=== PATIENT | male | born 1950 | race Caucasian/White ===

== ENCOUNTER → 2016-11-24 | Outpatient (CLI) | payer BC ==
[~2016-11-24] MED LIST: ALBU0.084 IN; CLOP75TA28 PO; FLUT0.0531 NAS; FLUT500M6 INH; OMEP20CA5 PO; RAMI10CA38 PO; ROSU10TA16 PO; TAM04C PO
[2016-11-24 09:11] LABS: Basophils # (auto) 0 uL; Basophils % (auto) 0.3 % (0.0-2.0); Eosinophils # (auto) 0.4 uL; Eosinophils % (auto) 5.7 % (0.0-7.0); Hematocrit 46.1 % (41.0-53.0); Hemoglobin 14.6 g/dL (13.5-17.5); Lymphocytes # (auto) 1.3 uL; Mean Corpuscular Hemoglobin 29.4 pg (28.0-32.0); Mean Corpuscular Hgb Conc. 31.6 g/dL (32.0-36.0); Mean Corpuscular Volume 92.9 fL (80.0-100.0); Mean Platelet Volume 9.4 fL (7.4-10.4); Monocytes # (auto) 0.5 uL; Monocytes % (auto) 7.4 % (0.0-12.0); Neutrophils # (auto) 4.2 uL; Neutrophils % (auto) 65.6 % (37.0-80.0); Platelet Count (auto) 222 10^3/uL (140-450); Red Cell Distribution Width 13.9 % (11.6-16.0); White Blood Cell 6.4 10^3/uL (4.4-10.8)
[2016-11-24 11:12] LABS: Urine Bilirubin Negative (Negative); Urine Blood Negative /uL (Negative); Urine Color Yellow (Yellow); Urine Glucose Normal (Normal); Urine Ketone Negative (Negative); Urine Nitrite Negative (Negative); Urine RBC <1 /hpf (0 - 3); Urine Squamous Epithelial Cell FEW /hpf (<5); Urine Urobilinogen Normal (Negative)
[2016-11-24 13:53] LABS: Potassium 4.6 mmol/L (3.5-5.1)
[2016-11-24 14:09] LABS: Albumin 3.6 g/dL (3.4-5.0); BUN/Creatinine Ratio 19.3; Calcium 8.8 mg/dL (8.5-10.1)
[2016-11-24 14:55] LABS: Bilirubin, Total 1.3 mg/dL (0.2-1.0); Total Protein 7.5 g/dL (6.4-8.2)
== END | disposition home or self-care (01) ==
LOC: LAB 07:49
PROVIDERS: ATTEND Internal Medicine
DX: Z00.00 Encounter for general adult medical examination without abnormal findings (principal); I10 Essential (primary) hypertension; J44.9 Chronic obstructive pulmonary disease, unspecified; E55.9 Vitamin D deficiency, unspecified; K21.9 Gastro-esophageal reflux disease without esophagitis
CPT/HCPCS: 36415; 80053; 80061; 81001; 82306; 84153; 85025

== ENCOUNTER → 2017-01-20 | Outpatient (CLI) | payer BC ==
[~2017-01-20] MED LIST changes: +ALBUTEROL SULF 2.5 MG/0.5ML(0.5%) NEB SOLN ONE
== END ==
LOC: RT 08:35
PROVIDERS: ATTEND Internal Medicine
DX: J44.9 Chronic obstructive pulmonary disease, unspecified (principal)
CPT/HCPCS: 94060

== ENCOUNTER 2017-07-03 19:07 | Emergency (ER) | payer MEDICARE, BC ==
[~2017-07-03] VITALS: Ht 177.8 cm; Wt 88.9 kg
[~2017-07-03 19:07] MED LIST changes: -ALBUTEROL SULF 2.5 MG/0.5ML(0.5%) NEB SOLN ONE; -OMEP20CA5 PO; +OMEP20CA74 PO
[2017-07-03 19:28] VITALS: BP 137/85
[2017-07-03] MEDS ORDERED: traMADol HCL 50 MG TAB PO ONE (22:45)
== END 2017-07-03 23:22 | disposition home or self-care (01) ==
LOC: ER 19:17
DX: S52.122A Displaced fracture of head of left radius, initial encounter for closed fracture (principal); M25.422 Effusion, left elbow; Z88.0 Allergy status to penicillin; W01.0XXA Fall on same level from slipping, tripping and stumbling without subsequent striking against object, initial encounter; Y93.89 Activity, other specified; Y99.8 Other external cause status; Y92.89 Other specified places as the place of occurrence of the external cause
CPT/HCPCS: 29125; 73070; 73090; 73110

== ENCOUNTER → 2017-08-12 | Outpatient (CLI) | payer BC, MEDICARE ==
[2017-08-12 08:29] LABS: Basophils # (auto) 0 uL; Basophils % (auto) 0.4 % (0.0-2.0); Eosinophils # (auto) 0.4 uL; Eosinophils % (auto) 5.6 % (0.0-7.0); Hematocrit 46.8 % (41.0-53.0); Hemoglobin 15.7 g/dL (13.5-17.5); Lymphocytes # (auto) 1.9 uL; Lymphocytes % (auto) 30.4 % (10.0-50.0); Mean Corpuscular Hgb Conc. 33.5 g/dL (32.0-36.0); Mean Corpuscular Volume 95.5 fL (80.0-100.0); Mean Platelet Volume 8.8 fL (6.9-10.8); Monocytes # (auto) 0.5 uL; Monocytes % (auto) 8.3 % (0.0-12.0); Neutrophils # (auto) 3.5 uL; Neutrophils % (auto) 55.3 % (37.0-80.0); Nucleated Red Blood Cells % 0.1 %; Platelet Count (auto) 169 10^3/uL (140-450); Red Cell Distribution Width 13.9 % (11.8-14.3); White Blood Cell 6.3 10^3/uL (4.4-10.8)
[2017-08-12 08:35] LABS: Urine Bilirubin Negative (Negative); Urine Blood Negative /uL (Negative); Urine Color Yellow (Yellow); Urine Glucose Normal (Normal); Urine Ketone Negative (Negative); Urine Mucus FEW (None Seen); Urine Nitrite Negative (Negative); Urine RBC <1 /hpf (0 - 3); Urine Squamous Epithelial Cell FEW /hpf (<5); Urine Urobilinogen Normal (Negative)
[2017-08-12 08:48] LABS: Albumin 3.4 g/dL (3.4-5.0); BUN/Creatinine Ratio 15.2; Bilirubin, Total 1.9 mg/dL (0.2-1.0); Calcium 8.9 mg/dL (8.5-10.1); Potassium 4.6 mmol/L (3.5-5.1); Total Protein 7.6 g/dL (6.4-8.2)
== END | disposition home or self-care (01) ==
LOC: LAB 07:47
PROVIDERS: ATTEND Internal Medicine
DX: I10 Essential (primary) hypertension (principal); E78.2 Mixed hyperlipidemia; N39.0 Urinary tract infection, site not specified; E55.9 Vitamin D deficiency, unspecified
CPT/HCPCS: 36415; 80053; 80061; 81001; 82306; 85025

== ENCOUNTER 2017-12-05 08:17 | Day surgery (SDC) | payer OTHER ==
[2017-12-02 11:33] LABS: Basophils # (auto) 0 uL; Basophils % (auto) 0.4 % (0.0-2.0); Eosinophils # (auto) 0.3 uL; Eosinophils % (auto) 5.8 % (0.0-7.0); Hematocrit 47.1 % (41.0-53.0); Hemoglobin 15.8 g/dL (13.5-17.5); Lymphocytes # (auto) 1.3 uL; Lymphocytes % (auto) 25.4 % (10.0-50.0); Mean Corpuscular Hemoglobin 31.8 pg (28.0-32.0); Mean Corpuscular Hgb Conc. 33.7 g/dL (32.0-36.0); Mean Corpuscular Volume 94.5 fL (80.0-100.0); Monocytes # (auto) 0.4 uL; Monocytes % (auto) 7.4 % (0.0-12.0); Neutrophils # (auto) 3.2 uL; Nucleated Red Blood Cells % 0.1 %; Platelet Count (auto) 172 10^3/uL (140-450); Red Blood Cells 4.98 10^6/uL (4.5-5.90); Red Cell Distribution Width 13.7 % (11.8-14.3); White Blood Cell 5.3 10^3/uL (4.4-10.8)
[2017-12-02 11:43] LABS: INR 0.98 (0.9-1.15); Prothrombin Time 10.7 sec (9.37-12.3)
[~2017-12-05] VITALS: Ht 177.8 cm; Wt 88.9 kg
[~2017-12-05 08:17] MED LIST changes: +CARV3.1240 PO; -FLUT500M6 INH; +LISI-275 PO; +MONT10TA34 PO; -OMEP20CA74 PO; -RAMI10CA38 PO; -ROSU10TA16 PO; +SIMV20TA90 PO; -TAM04C PO
[2017-12-05] MEDS ORDERED: diphenhdrAMINE HCL 50 MG/1 ML VL ONE (08:37)
[2017-12-05] MEDS ORDERED: SODIUM CHLORIDE LOCK 10 ML ONE (08:37)
[2017-12-05] MEDS: MIDAZOLAM HCL 5 MG/ML-1ML VIAL ONE ×2 (08:49→08:56)
[2017-12-05] MEDS: fentaNYL CITRATE 100 MCG/2 ML VL ONE ×2 (08:49→08:56)
[2017-12-05 10:00] VITALS: BP 98/73
== END 2017-12-05 10:00 | disposition home or self-care (01) ==
LOC: GI 08:17
PROVIDERS: ATTEND Internal Medicine Gastroenterology
DX: Z12.11 Encounter for screening for malignant neoplasm of colon (principal); K63.5 Polyp of colon; K64.8 Other hemorrhoids; K57.30 Diverticulosis of large intestine without perforation or abscess without bleeding; Z88.0 Allergy status to penicillin; E66.9 Obesity, unspecified; Z68.28 Body mass index [BMI] 28.0-28.9, adult; Z95.0 Presence of cardiac pacemaker; J44.9 Chronic obstructive pulmonary disease, unspecified; J45.909 Unspecified asthma, uncomplicated; Z90.49 Acquired absence of other specified parts of digestive tract
CPT/HCPCS: 36415; 45380; 45385; 85025; 85610; J1200; J2250; J3010; 99152

== ENCOUNTER → 2018-01-18 | Outpatient (CLI) | payer BC, OTHER ==
[~2018-01-18] MED LIST changes: +ALBU1.257 NEB; +ATOR20TA50 PO; +BUDE80AE3 NEB; +CLOP75TA41 PO; +FLUT50SP13; +HYDR-4683 PO; +METO25TA62 PO; +NAPR500T31 PO; +RAMI10CA38 PO; +RIVA20TA PO; +SIMV-8 PO; +SOTA80TA PO
== END | disposition home or self-care (01) ==
LOC: Rad HDHVI 08:12 → MERGE 08:12
PROVIDERS: ATTEND Internal Medicine Cardiovascular Disease
DX: G45.9 Transient cerebral ischemic attack, unspecified (principal); I12.9 Hypertensive chronic kidney disease with stage 1 through stage 4 chronic kidney disease, or unspecified chronic kidney disease; N18.3 Chronic kidney disease, stage 3 (moderate); E78.00 Pure hypercholesterolemia, unspecified
CPT/HCPCS: 93880

== ENCOUNTER → 2018-03-06 | Outpatient (CLI) | payer OTHER ==
[2018-03-06 11:47] LABS: Basophils # (auto) 0 uL; Basophils % (auto) 0.4 % (0.0-2.0); Eosinophils # (auto) 0.4 uL; Eosinophils % (auto) 7.2 % (0.0-7.0); Hematocrit 50.6 % (41.0-53.0); Lymphocytes # (auto) 1.4 uL; Lymphocytes % (auto) 28.8 % (10.0-50.0); Mean Corpuscular Hemoglobin 32.3 pg (28.0-32.0); Mean Corpuscular Hgb Conc. 33.6 g/dL (32.0-36.0); Mean Corpuscular Volume 96.1 fL (80.0-100.0); Monocytes # (auto) 0.4 uL; Monocytes % (auto) 7.8 % (0.0-12.0); Neutrophils # (auto) 2.7 uL; Neutrophils % (auto) 55.8 % (37.0-80.0); Nucleated Red Blood Cells % 0.2 %; Platelet Count (auto) 156 10^3/uL (140-450); Red Blood Cells 5.26 10^6/uL (4.5-5.90); Red Cell Distribution Width 13.7 % (11.8-14.3); White Blood Cell 4.9 10^3/uL (4.4-10.8)
[2018-03-06 13:00] LABS: Albumin 3.8 g/dL (3.4-5.0); BUN/Creatinine Ratio 12.2; Bilirubin, Total 3.5 mg/dL (0.2-1.0); Calcium 9.5 mg/dL (8.5-10.1); Potassium 5.2 mmol/L (3.5-5.1)
== END | disposition home or self-care (01) ==
LOC: MERGE 09:59 → LAB 09:59
PROVIDERS: ATTEND Physician Assistant
DX: I12.9 Hypertensive chronic kidney disease with stage 1 through stage 4 chronic kidney disease, or unspecified chronic kidney disease (principal); N18.3 Chronic kidney disease, stage 3 (moderate); E78.00 Pure hypercholesterolemia, unspecified; N40.0 Benign prostatic hyperplasia without lower urinary tract symptoms; I48.1 Persistent atrial fibrillation; Z86.73 Personal history of transient ischemic attack (TIA), and cerebral infarction without residual deficits
CPT/HCPCS: 36415; 80053; 80061; 84153; 85025

== ENCOUNTER 2018-03-23 08:25 | Day surgery (SDC) | payer OTHER ==
[2018-03-15 08:34] LABS: Basophils # (auto) 0 uL; Basophils % (auto) 0.5 % (0.0-2.0); Eosinophils # (auto) 0.3 uL; Eosinophils % (auto) 6.2 % (0.0-7.0); Hematocrit 48.2 % (41.0-53.0); Hemoglobin 16.4 g/dL (13.5-17.5); Lymphocytes # (auto) 1.1 uL; Lymphocytes % (auto) 23.6 % (10.0-50.0); Mean Corpuscular Hemoglobin 32.5 pg (28.0-32.0); Mean Corpuscular Volume 95.5 fL (80.0-100.0); Monocytes # (auto) 0.3 uL; Neutrophils # (auto) 2.8 uL; Neutrophils % (auto) 63.7 % (37.0-80.0); Platelet Count (auto) 148 10^3/uL (140-450); Red Blood Cells 5.04 10^6/uL (4.5-5.90); Red Cell Distribution Width 13.4 % (11.8-14.3); White Blood Cell 4.5 10^3/uL (4.4-10.8)
[2018-03-15 08:45] LABS: INR 1.19 (0.9-1.15); Partial Thromboplastin Time 32.5 sec (23.78-33.04); Prothrombin Time 12.6 sec (9.27-12.13)
[2018-03-15 09:28] LABS: Potassium 4.4 mmol/L (3.5-5.1)
[~2018-03-23] VITALS: Ht 175.3 cm; Wt 87.5 kg
[~2018-03-23 08:25] MED LIST changes: -CLOP75TA28 PO; -SIMV20TA90 PO
[2018-03-23] MEDS ORDERED: IOHEXOL 350 MG/ML 100ML IJ ONE (09:09)
[2018-03-23] MEDS ORDERED: LIDOCAINE 2%HCL (LOCAL ANESTH.) INJ 20ML MDV ONE (09:09)
[2018-03-23] MEDS ORDERED: SODIUM CHL 0.9% 0 ML ONE (09:13)
[2018-03-23] MEDS ORDERED: MIDAZOLAM HCL 1MG/1ML-2 ML VIAL ONE (09:13)
[2018-03-23] MEDS ORDERED: ANGIOMAX 250 MG VIAL IV ONE (09:13)
[2018-03-23] MEDS ORDERED: fentaNYL CITRATE 100 MCG/2 ML VL ONE (09:13)
[2018-03-23] MEDS ORDERED: IODIXANOL 320MG/ML 100ML BTL IV ONE (09:26)
[2018-03-23] MEDS ORDERED: ENOXAPARIN SOD 30 MG/0.3 ML SYRINGE ONE (09:32)
[2018-03-23] MEDS ORDERED: ENOXAPARIN SOD 30 MG/0.3 ML SYRINGE IV ONE (09:45)
== END 2018-03-23 11:50 | disposition home or self-care (01) ==
LOC: CATH 08:25
PROVIDERS: ATTEND Internal Medicine Cardiovascular Disease
DX: I48.91 Unspecified atrial fibrillation (principal); I49.5 Sick sinus syndrome; E66.9 Obesity, unspecified; J44.9 Chronic obstructive pulmonary disease, unspecified; I10 Essential (primary) hypertension; E78.5 Hyperlipidemia, unspecified; Z86.73 Personal history of transient ischemic attack (TIA), and cerebral infarction without residual deficits; Z95.0 Presence of cardiac pacemaker; Z88.0 Allergy status to penicillin; Z79.899 Other long term (current) drug therapy
CPT/HCPCS: 36415; 80048; 85025; 85610; 85730; 92960; 93005; 93458; C1760; C1894; J1644; J1650; J2250; J3010; J7030; Q9967; 99152

== ENCOUNTER → 2018-04-10 | Outpatient (CLI) | payer OTHER | END | disposition home or self-care (01) | LOC: Rad HDHVI 09:00 | PROVIDERS: ATTEND Internal Medicine Cardiovascular Disease | DX: Z01.818 Encounter for other preprocedural examination (principal); I08.8 Other rheumatic multiple valve diseases; I48.91 Unspecified atrial fibrillation; I12.9 Hypertensive chronic kidney disease with stage 1 through stage 4 chronic kidney disease, or unspecified chronic kidney disease; N18.3 Chronic kidney disease, stage 3 (moderate); K21.9 Gastro-esophageal reflux disease without esophagitis; E78.5 Hyperlipidemia, unspecified | CPT/HCPCS: 93306 ==

== ENCOUNTER → 2018-04-12 | Outpatient (CLI) | payer OTHER | END | disposition home or self-care (01) | LOC: Rad HDHVI 09:14 | PROVIDERS: ATTEND Internal Medicine Cardiovascular Disease | DX: Z01.818 Encounter for other preprocedural examination (principal); R91.1 Solitary pulmonary nodule; I12.9 Hypertensive chronic kidney disease with stage 1 through stage 4 chronic kidney disease, or unspecified chronic kidney disease; N18.3 Chronic kidney disease, stage 3 (moderate); G31.9 Degenerative disease of nervous system, unspecified; I70.90 Unspecified atherosclerosis; J34.9 Unspecified disorder of nose and nasal sinuses; E78.5 Hyperlipidemia, unspecified; E78.00 Pure hypercholesterolemia, unspecified; K21.9 Gastro-esophageal reflux disease without esophagitis; Z79.899 Other long term (current) drug therapy | CPT/HCPCS: 70450 ==

== ENCOUNTER → 2018-06-14 | Outpatient (CLI) | payer OTHER ==
[~2018-06-14] MED LIST changes: -ATOR20TA50 PO; -CARV3.1240 PO; -CLOP75TA41 PO; -FLUT50SP13; -METO25TA62 PO; -MONT10TA34 PO; -NAPR500T31 PO; -RAMI10CA38 PO; +SACU1TAB PO
[2018-06-14 09:14] LABS: Basophils # (auto) 0 uL; Basophils % (auto) 0.4 % (0.0-2.0); Eosinophils # (auto) 0.2 uL; Hematocrit 43.5 % (41.0-53.0); Hemoglobin 14.5 g/dL (13.5-17.5); Lymphocytes # (auto) 1.2 uL; Lymphocytes % (auto) 30.3 % (10.0-50.0); Mean Corpuscular Hemoglobin 31.5 pg (28.0-32.0); Mean Corpuscular Hgb Conc. 33.4 g/dL (32.0-36.0); Mean Corpuscular Volume 94.5 fL (80.0-100.0); Monocytes # (auto) 0.4 uL; Monocytes % (auto) 8.8 % (0.0-12.0); Neutrophils # (auto) 2.2 uL; Neutrophils % (auto) 54.5 % (37.0-80.0); Nucleated Red Blood Cells % 0.1 %; Platelet Count (auto) 180 10^3/uL (140-450); Red Cell Distribution Width 13.5 % (11.8-14.3); White Blood Cell 4.1 10^3/uL (4.4-10.8)
[2018-06-14 09:27] LABS: INR 1.15 (0.9-1.15); Partial Thromboplastin Time 32.8 sec (23.78-33.04); Prothrombin Time 12.2 sec (9.27-12.13)
[2018-06-14 09:34] LABS: BUN/Creatinine Ratio 14.3; Calcium 8.6 mg/dL (8.5-10.1); Potassium 4.5 mmol/L (3.5-5.1)
== END | disposition home or self-care (01) ==
LOC: LAB 08:25
PROVIDERS: ATTEND Internal Medicine
DX: Z01.818 Encounter for other preprocedural examination (principal); Z88.0 Allergy status to penicillin
CPT/HCPCS: 36415; 80048; 85025; 85610; 85730

== ENCOUNTER → 2018-09-08 | Outpatient (CLI) | payer BC, MEDICARE, OTHER ==
[~2018-09-08] MED LIST changes: -ALBU0.084 IN; -ALBU1.257 NEB; -LISI-275 PO
== END | disposition home or self-care (01) ==
LOC: Rad HDHVI 12:45
PROVIDERS: ATTEND Internal Medicine Cardiovascular Disease
DX: I34.0 Nonrheumatic mitral (valve) insufficiency (principal); I34.1 Nonrheumatic mitral (valve) prolapse; I42.0 Dilated cardiomyopathy; I11.0 Hypertensive heart disease with heart failure; I50.23 Acute on chronic systolic (congestive) heart failure
CPT/HCPCS: 93306

== ENCOUNTER → 2018-11-24 | Outpatient (CLI) | payer OTHER ==
[2018-11-24 08:09] LABS: Basophils # (auto) 0 uL; Basophils % (auto) 0.5 % (0.0-2.0); Eosinophils # (auto) 0.2 uL; Eosinophils % (auto) 4.8 % (0.0-7.0); Hematocrit 44.6 % (41.0-53.0); Hemoglobin 15.1 g/dL (13.5-17.5); Lymphocytes # (auto) 1.3 uL; Lymphocytes % (auto) 25.4 % (10.0-50.0); Mean Corpuscular Hgb Conc. 33.9 g/dL (32.0-36.0); Mean Corpuscular Volume 94.4 fL (80.0-100.0); Monocytes # (auto) 0.5 uL; Monocytes % (auto) 9.3 % (0.0-12.0); Neutrophils # (auto) 3.1 uL; Nucleated Red Blood Cells % 0.1 %; Platelet Count (auto) 145 10^3/uL (140-450); Red Blood Cells 4.72 10^6/uL (4.5-5.90); Red Cell Distribution Width 14.2 % (11.8-14.3); White Blood Cell 5.2 10^3/uL (4.4-10.8)
[2018-11-24 08:32] LABS: Albumin 3.3 g/dL (3.4-5.0); Potassium 4.7 mmol/L (3.5-5.1)
[2018-11-24 08:42] LABS: BUN/Creatinine Ratio 26.7; Bilirubin, Total 1.9 mg/dL (0.2-1.0); Calcium 9.1 mg/dL (8.5-10.1); Total Protein 7.1 g/dL (6.4-8.2)
== END | disposition home or self-care (01) ==
LOC: LAB 07:43
PROVIDERS: ATTEND Physician Assistant
DX: N40.0 Benign prostatic hyperplasia without lower urinary tract symptoms (principal); E78.00 Pure hypercholesterolemia, unspecified
CPT/HCPCS: 36415; 80053; 80061; 84153; 85025

== ENCOUNTER → 2018-12-18 | Outpatient (CLI) | payer OTHER | END | disposition home or self-care (01) | LOC: Rad HDHVI 12:49 | PROVIDERS: ATTEND Internal Medicine Cardiovascular Disease | DX: I67.82 Cerebral ischemia (principal); I67.2 Cerebral atherosclerosis | CPT/HCPCS: 70450 ==

== ENCOUNTER 2019-01-23 09:52 | Inpatient (IN) | payer OTHER | END 2019-01-26 19:10 | disposition home or self-care (01) | LOC: ER 09:52 → TELE-EAST 20:36 → TELE 14:33 → TELE-EAST 20:39 | DX: J44.1 Chronic obstructive pulmonary disease with (acute) exacerbation (principal); I50.23 Acute on chronic systolic (congestive) heart failure; N18.3 Chronic kidney disease, stage 3 (moderate); E78.00 Pure hypercholesterolemia, unspecified; J20.9 Acute bronchitis, unspecified; J44.0 Chronic obstructive pulmonary disease with (acute) lower respiratory infection ==

== ENCOUNTER → 2019-05-03 | Outpatient (CLI) | payer BC, MEDICARE, OTHER ==
[~2019-05-03] MED LIST changes: +ALB5IS NEB; -HYDR-4683 PO; +HYDR-4833 PO
== END | disposition home or self-care (01) ==
LOC: Rad HDHVI 14:34
PROVIDERS: ATTEND Internal Medicine Cardiovascular Disease
DX: I34.0 Nonrheumatic mitral (valve) insufficiency (principal); I48.91 Unspecified atrial fibrillation; I25.5 Ischemic cardiomyopathy
CPT/HCPCS: 93306

== ENCOUNTER → 2019-08-03 | Outpatient (CLI) | payer OTHER, MEDICARE ==
[~2019-08-03] MED LIST changes: +SOTA120T39 PO
[2019-08-03 08:58] LABS: Basophils # (auto) 0 uL; Basophils % (auto) 0.2 % (0.0-2.0); Eosinophils # (auto) 0.3 uL; Eosinophils % (auto) 4.6 % (0.0-7.0); Hemoglobin 15.9 g/dL (13.5-17.5); Lymphocytes # (auto) 1.4 uL; Lymphocytes % (auto) 24.7 % (10.0-50.0); Mean Corpuscular Hemoglobin 32.1 pg (28.0-32.0); Mean Corpuscular Hgb Conc. 34.7 g/dL (32.0-36.0); Mean Corpuscular Volume 92.8 fL (80.0-100.0); Monocytes # (auto) 0.4 uL; Monocytes % (auto) 7.4 % (0.0-12.0); Neutrophils # (auto) 3.5 uL; Neutrophils % (auto) 63.1 % (37.0-80.0); Nucleated Red Blood Cells % 0.1 %; Platelet Count (auto) 171 10^3/uL (140-450); Red Blood Cells 4.96 10^6/uL (4.5-5.90); Red Cell Distribution Width 13.7 % (11.8-14.3); White Blood Cell 5.6 10^3/uL (4.4-10.8)
[2019-08-03 09:14] LABS: BUN/Creatinine Ratio 24.3; Calcium 8.5 mg/dL (8.5-10.1); Potassium 4.6 mmol/L (3.5-5.1)
[2019-08-03 09:15] LABS: INR 1.05 (0.9-1.15); Partial Thromboplastin Time 32.2 sec (23.64-32.05)
== END | disposition home or self-care (01) ==
LOC: LAB 08:47
PROVIDERS: ATTEND Physician Assistant
DX: Z01.818 Encounter for other preprocedural examination (principal); E78.00 Pure hypercholesterolemia, unspecified
CPT/HCPCS: 36415; 80048; 85025; 85610; 85730

== ENCOUNTER 2019-08-16 07:27 | Day surgery (SDC) | payer OTHER ==
[~2019-08-16] VITALS: Ht 175.3 cm; Wt 89.4 kg
[~2019-08-16 07:27] MED LIST changes: -ALB5IS NEB; -HYDR-4833 PO
[2019-08-16] MEDS ORDERED: IOHEXOL 350 MG/ML 100ML IJ ONE (08:03)
[2019-08-16] MEDS ORDERED: LIDOCAINE 2%HCL (LOCAL ANESTH.) INJ 20ML MDV ONE (08:03)
[2019-08-16] MEDS ORDERED: GLYCOPYRROLATE 0.2 MG/ML 1ML VIAL ONE (09:49)
[2019-08-16] MEDS ORDERED: ANGIOMAX 250 MG VIAL IV ONE (09:49)
[2019-08-16] MEDS ORDERED: PHENYLEPHRINE HCL 10 MG/ML VL ONE (09:49)
[2019-08-16] MEDS ORDERED: fentaNYL CITRATE 100 MCG/2 ML VL ONE (09:50)
[2019-08-16] MEDS ORDERED: SODIUM CHL 0.9% 0 ML ONE (09:50)
[2019-08-16] MEDS ORDERED: MIDAZOLAM HCL 1MG/1ML-2 ML VIAL ONE (09:50)
== END 2019-08-16 12:30 | disposition home or self-care (01) ==
LOC: CATH 07:27
PROVIDERS: ATTEND Internal Medicine Cardiovascular Disease
DX: I48.19 Other persistent atrial fibrillation (principal); I42.9 Cardiomyopathy, unspecified; I13.0 Hypertensive heart and chronic kidney disease with heart failure and stage 1 through stage 4 chronic kidney disease, or unspecified chronic kidney disease; N18.3 Chronic kidney disease, stage 3 (moderate); I50.23 Acute on chronic systolic (congestive) heart failure; J44.9 Chronic obstructive pulmonary disease, unspecified; E78.5 Hyperlipidemia, unspecified; Z87.891 Personal history of nicotine dependence; Z95.810 Presence of automatic (implantable) cardiac defibrillator; Z88.8 Allergy status to other drugs, medicaments and biological substances; Z88.0 Allergy status to penicillin; Z91.048 Other nonmedicinal substance allergy status; Z79.899 Other long term (current) drug therapy
CPT/HCPCS: 36223; 93005; 93458; C1760; C1894; J1644; Q9967; 99152; J2250

== ENCOUNTER 2020-03-07 14:03 | Emergency (ER) | payer OTHER ==
[~2020-03-07] VITALS: Ht 175.3 cm; Wt 90.7 kg
[2020-03-07 14:38] LABS: Basophils # (auto) 0 10 ^3/uL (0-0.2); Basophils % (auto) 0.4 % (0.0-2.0); Eosinophils # (auto) 0.3 10 ^3/uL (0-0.8); Eosinophils % (auto) 3.9 % (0.0-7.0); Hematocrit 49.9 % (41.0-53.0); Hemoglobin 16.3 g/dL (13.5-17.5); Lymphocytes # (auto) 1.8 10 ^3/uL (0.4-5.4); Lymphocytes % (auto) 26.5 % (10.0-50.0); Mean Corpuscular Hemoglobin 31.5 pg (28.0-32.0); Mean Corpuscular Hgb Conc. 32.8 g/dL (32.0-36.0); Mean Corpuscular Volume 96.1 fL (80.0-100.0); Monocytes # (auto) 0.6 10 ^3/uL (0-1.3); Monocytes % (auto) 9.1 % (0.0-12.0); Neutrophils % (auto) 60.1 % (37.0-80.0); Nucleated Red Blood Cells % 0.1 %; Platelet Count (auto) 165 10^3/uL (140-450); Red Blood Cells 5.19 10^6/uL (4.5-5.90); Red Cell Distribution Width 14.3 % (11.8-14.3); White Blood Cell 6.7 10^3/uL (4.4-10.8)
[2020-03-07 14:53] LABS: Albumin 3.4 g/dL (3.4-5.0); Anion Gap 7 (5-15); Blood Urea Nitrogen 23 mg/dL (7-18); Calcium 8.6 mg/dL (8.5-10.1); Carbon Dioxide 22 mmol/L (21-32); Chloride 112 mmol/L (98-107); Glucose 91 mg/dL (74-106); Potassium 4.1 mmol/L (3.5-5.1); Sodium 141 mmol/L (136-145)
[2020-03-07 14:58] LABS: Alanine Aminotransferase 40 U/L (16-61); Alkaline Phosphatase 99 U/L (45-117); Aspartate Aminotransferase 26 U/L (15-37); Bilirubin, Total 2.8 mg/dL (0.2-1.0); GFR African American 77 mL/min; GFR Non-African American 63 mL/min; Total Protein 7.2 g/dL (6.4-8.2)
[2020-03-07 15:01] LABS: INR 1.09 (0.9-1.15); Partial Thromboplastin Time 28.5 sec (23.64-32.05)
[2020-03-07 18:11] VITALS: BP 118/72
== END 2020-03-07 18:15 | disposition home or self-care (01) ==
LOC: ER 14:03
DX: G45.9 Transient cerebral ischemic attack, unspecified (principal); R07.89 Other chest pain; J32.9 Chronic sinusitis, unspecified; J44.9 Chronic obstructive pulmonary disease, unspecified; I11.0 Hypertensive heart disease with heart failure; I50.9 Heart failure, unspecified; Z90.49 Acquired absence of other specified parts of digestive tract
CPT/HCPCS: 36415; 70450; 71045; 80053; 82962; 83880; 84484; 85025; 85610; 85730; 93005; 93886

== ENCOUNTER → 2020-03-24 | Outpatient (CLI) | payer OTHER ==
[2020-03-24 12:09] LABS: Basophils # (auto) 0 10 ^3/uL (0-0.2); Basophils % (auto) 0.3 % (0.0-2.0); Eosinophils # (auto) 0.2 10 ^3/uL (0-0.8); Eosinophils % (auto) 3.5 % (0.0-7.0); Hematocrit 49.4 % (41.0-53.0); Hemoglobin 16.4 g/dL (13.5-17.5); Lymphocytes # (auto) 1.4 10 ^3/uL (0.4-5.4); Mean Corpuscular Hemoglobin 32.2 pg (28.0-32.0); Mean Corpuscular Hgb Conc. 33.2 g/dL (32.0-36.0); Mean Corpuscular Volume 97.2 fL (80.0-100.0); Monocytes # (auto) 0.4 10 ^3/uL (0-1.3); Monocytes % (auto) 6.8 % (0.0-12.0); Neutrophils # (auto) 4.4 10 ^3/uL (1.6-8.6); Neutrophils % (auto) 67.4 % (37.0-80.0); Nucleated Red Blood Cells % 0.4 %; Platelet Count (auto) 162 10^3/uL (140-450); Red Blood Cells 5.08 10^6/uL (4.5-5.90); White Blood Cell 6.5 10^3/uL (4.4-10.8)
[2020-03-24 12:24] LABS: Free T4 (Free Thyroxine) 1.05 ng/dL (0.89-1.76)
[2020-03-24 12:25] LABS: Prostate Specific Antigen 0.5 ng/mL (0.0-4.0)
[2020-03-24 12:56] LABS: Albumin 3.2 g/dL (3.4-5.0); BUN/Creatinine Ratio 16.1; Bilirubin, Total 3.1 mg/dL (0.2-1.0); Calcium 8.8 mg/dL (8.5-10.1); Total Protein 7.1 g/dL (6.4-8.2)
== END | disposition home or self-care (01) ==
LOC: Rad HDHVI 08:57
PROVIDERS: ATTEND Internal Medicine Cardiovascular Disease
DX: C61 Malignant neoplasm of prostate (principal); Z00.00 Encounter for general adult medical examination without abnormal findings; E03.9 Hypothyroidism, unspecified; K90.9 Intestinal malabsorption, unspecified; E29.1 Testicular hypofunction; D51.9 Vitamin B12 deficiency anemia, unspecified; Z79.899 Other long term (current) drug therapy
CPT/HCPCS: 36415; 80053; 80061; 82306; 82607; 83036; 84153; 84403; 84439; 84443; 85025; 93306

== ENCOUNTER → 2020-07-08 | Outpatient (CLI) | payer OTHER ==
[2020-07-08 16:04] LABS: BUN/Creatinine Ratio 17.7; Calcium 8.5 mg/dL (8.5-10.1); Magnesium 2.5 mg/dL (1.6-2.6); Potassium 4.4 mmol/L (3.5-5.1)
== END | disposition home or self-care (01) ==
LOC: LAB 12:20
PROVIDERS: ATTEND Internal Medicine Cardiovascular Disease
DX: I10 Essential (primary) hypertension (principal); E83.40 Disorders of magnesium metabolism, unspecified
CPT/HCPCS: 36415; 80048; 83735

== ENCOUNTER 2020-09-13 07:29 | Emergency (ER) | payer OTHER ==
[~2020-09-13] VITALS: Ht 175.3 cm; Wt 90.3 kg
[2020-09-13] MEDS ORDERED: SODIUM CHLORIDE 0.9% 500 ML IV ONE (07:45)
[2020-09-13] MEDS ORDERED: ONDANSETRON HCL 4 MG/2 ML VIAL IV ONE (07:45)
[2020-09-13 08:00] VITALS: BP 116/79
[2020-09-13] MEDS ORDERED: MORPHINE SULFATE 4 MG/ML SYR/VIAL IV ONE (08:00)
[2020-09-13 08:03] LABS: Basophils # (auto) 0 10 ^3/uL (0-0.2); Basophils % (auto) 0.4 % (0.0-2.0); Eosinophils # (auto) 0.3 10 ^3/uL (0-0.8); Eosinophils % (auto) 4.4 % (0.0-7.0); Hematocrit 49.2 % (41.0-53.0); Hemoglobin 16.4 g/dL (13.5-17.5); Lymphocytes # (auto) 2.6 10 ^3/uL (0.4-5.4); Lymphocytes % (auto) 39.1 % (10.0-50.0); Mean Corpuscular Hemoglobin 31.8 pg (28.0-32.0); Mean Corpuscular Hgb Conc. 33.2 g/dL (32.0-36.0); Mean Corpuscular Volume 95.7 fL (80.0-100.0); Monocytes # (auto) 0.6 10 ^3/uL (0-1.3); Monocytes % (auto) 9.3 % (0.0-12.0); Neutrophils # (auto) 3.2 10 ^3/uL (1.6-8.6); Neutrophils % (auto) 46.8 % (37.0-80.0); Nucleated Red Blood Cells % 0.1 %; Platelet Count (auto) 176 10^3/uL (140-450); Red Blood Cells 5.15 10^6/uL (4.5-5.90); Red Cell Distribution Width 13.5 % (11.8-14.3); White Blood Cell 6.8 10^3/uL (4.4-10.8)
[2020-09-13 08:16] LABS: Albumin 3.6 g/dL (3.4-5.0); BUN/Creatinine Ratio 17.9; Calcium 9.6 mg/dL (8.5-10.1); Potassium 3.9 mmol/L (3.5-5.1)
[2020-09-13 08:28] LABS: Bilirubin, Total 2.4 mg/dL (0.2-1.0); Total Protein 7.6 g/dL (6.4-8.2)
== END 2020-09-13 12:49 | disposition home or self-care (01) ==
LOC: ER 07:29
DX: J44.1 Chronic obstructive pulmonary disease with (acute) exacerbation (principal); I11.0 Hypertensive heart disease with heart failure; I50.9 Heart failure, unspecified; K20.90 Esophagitis, unspecified without bleeding; N20.0 Calculus of kidney; J44.9 Chronic obstructive pulmonary disease, unspecified; Z90.49 Acquired absence of other specified parts of digestive tract; Z79.899 Other long term (current) drug therapy; Z88.0 Allergy status to penicillin; Z20.828 Contact with and (suspected) exposure to other viral communicable diseases
CPT/HCPCS: 36415; 71045; 74176; 80053; 83880; 84484; 85025; 87426; 93005; 96361; 96374; 99285; C9803; J2405; J7030; U0003

== ENCOUNTER → 2021-02-05 | Outpatient (CLI) | payer OTHER | END | disposition home or self-care (01) | LOC: Rad HDHVI 15:15 | PROVIDERS: ATTEND Internal Medicine Cardiovascular Disease | DX: R07.89 Other chest pain (principal); I10 Essential (primary) hypertension | CPT/HCPCS: 93306 ==

== ENCOUNTER → 2021-02-11 | Outpatient (CLI) | payer OTHER ==
[~2021-02-11] VITALS: Ht 176.5 cm; Wt 92.5 kg
[~2021-02-11] MED LIST changes: +ADENOSINE 78 MG in GIVE UN-DILUTED 0 ML IV ONE; +ADENOSINE 90 MG/30 ML INJ IV ONE
== END | disposition home or self-care (01) ==
LOC: Rad HDHVI 08:40
PROVIDERS: ATTEND Internal Medicine Cardiovascular Disease
DX: R94.31 Abnormal electrocardiogram [ECG] [EKG] (principal); I48.91 Unspecified atrial fibrillation; I10 Essential (primary) hypertension; I25.10 Atherosclerotic heart disease of native coronary artery without angina pectoris; E78.5 Hyperlipidemia, unspecified; R07.9 Chest pain, unspecified; R55 Syncope and collapse; Z95.0 Presence of cardiac pacemaker; Z82.49 Family history of ischemic heart disease and other diseases of the circulatory system
CPT/HCPCS: 78452; 93005; 96374; 96375; A9500; J0153

== ENCOUNTER → 2021-04-15 | Outpatient (CLI) | payer OTHER ==
[~2021-04-15] MED LIST changes: -ADENOSINE 78 MG in GIVE UN-DILUTED 0 ML IV ONE; -ADENOSINE 90 MG/30 ML INJ IV ONE; +BUDE80AE3 INH; -BUDE80AE3 NEB; +CHOL10009 PO; +DIGO0.25 PO; +MAGN400T40 PO; +METO-159 PO; +METO1TAB9 PO; +OMEG1CAP59 PO; +VITA100072 PO
[2021-04-15 10:04] VITALS: BP 96/67
[2021-04-15 10:18] VITALS: BP 104/75
[2021-04-15 12:05] LABS: Basophils # (auto) 0 10 ^3/uL (0-0.2); Basophils % (auto) 0.4 % (0.0-2.0); Eosinophils # (auto) 0.3 10 ^3/uL (0-0.8); Eosinophils % (auto) 4.7 % (0.0-7.0); Hematocrit 46.4 % (41.0-53.0); Hemoglobin 15.8 g/dL (13.5-17.5); Lymphocytes # (auto) 1.4 10 ^3/uL (0.4-5.4); Lymphocytes % (auto) 24.2 % (10.0-50.0); Mean Corpuscular Hemoglobin 32.8 pg (28.0-32.0); Mean Corpuscular Hgb Conc. 34.1 g/dL (32.0-36.0); Mean Corpuscular Volume 96.3 fL (80.0-100.0); Monocytes # (auto) 0.5 10 ^3/uL (0-1.3); Neutrophils # (auto) 3.6 10 ^3/uL (1.6-8.6); Neutrophils % (auto) 62.7 % (37.0-80.0); Platelet Count (auto) 158 10^3/uL (140-450); Red Blood Cells 4.81 10^6/uL (4.5-5.90); Red Cell Distribution Width 13.8 % (11.8-14.3); White Blood Cell 5.8 10^3/uL (4.4-10.8)
[2021-04-15 12:09] LABS: Potassium 4.5 mmol/L (3.5-5.1)
[2021-04-15 12:15] LABS: Calcium 8.7 mg/dL (8.5-10.1)
[2021-04-15 12:21] LABS: INR 1.1 (0.9-1.15); Partial Thromboplastin Time 27.2 sec (23.0-31.2)
== END | disposition home or self-care (01) ==
LOC: Rad HDHVI 09:51
PROVIDERS: ATTEND Internal Medicine Cardiovascular Disease
DX: Z01.812 Encounter for preprocedural laboratory examination (principal); I42.0 Dilated cardiomyopathy; I11.0 Hypertensive heart disease with heart failure; I50.9 Heart failure, unspecified; I48.91 Unspecified atrial fibrillation; M47.814 Spondylosis without myelopathy or radiculopathy, thoracic region; J98.11 Atelectasis
CPT/HCPCS: 36415; 71046; 80048; 85025; 85049; 85610; 85730; 93005; G0463

== ENCOUNTER 2021-04-16 08:20 | Day surgery (SDC) | payer OTHER ==
[~2021-04-16] VITALS: Ht 176.5 cm; Wt 91.6 kg
[~2021-04-16 08:20] MED LIST changes: -METO-159 PO; -SOTA120T39 PO
[2021-04-16] MEDS ORDERED: LIDOCAINE 2%HCL (LOCAL ANESTH.) INJ 20ML MDV ONE (09:22)
[2021-04-16] MEDS ORDERED: IOHEXOL 350 MG/ML 100ML IJ ONE (09:22)
[2021-04-16] MEDS ORDERED: fentaNYL CITRATE 100 MCG/2 ML VL ONE (09:38)
[2021-04-16] MEDS ORDERED: ANGIOMAX 250 MG VIAL IV ONE (09:38)
[2021-04-16] MEDS ORDERED: MIDAZOLAM HCL 2MG/2ML 2ml VIAL (1mg/ml) ONE (09:39)
[2021-04-16] MEDS ORDERED: SODIUM CHL 0.9% 0 ML ONE (09:39)
[2021-04-16] MEDS ORDERED: ACETAMINOPHEN 500 MG TAB PO PRN (10:45)
[2021-04-16] MEDS ORDERED: HYDROcodone-ACET 5/325MG TAB PO PRN (10:45)
== END 2021-04-16 13:01 | disposition home or self-care (01) ==
LOC: CATH 08:20
PROVIDERS: ATTEND Internal Medicine Cardiovascular Disease
DX: R07.89 Other chest pain (principal); I50.9 Heart failure, unspecified; J44.9 Chronic obstructive pulmonary disease, unspecified; Z98.890 Other specified postprocedural states; Z79.899 Other long term (current) drug therapy; Z88.8 Allergy status to other drugs, medicaments and biological substances; Z88.0 Allergy status to penicillin; Z68.29 Body mass index [BMI] 29.0-29.9, adult; Z95.810 Presence of automatic (implantable) cardiac defibrillator
CPT/HCPCS: 93458; C1760; C1894; J1644; J2250; J3010; J7030; Q9967; 99152

== ENCOUNTER → 2021-06-08 | Outpatient (CLI) | payer OTHER ==
[2021-06-08 08:50] LABS: Basophils # (auto) 0 10 ^3/uL (0-0.2); Basophils % (auto) 0.5 % (0.0-2.0); Eosinophils # (auto) 0.3 10 ^3/uL (0-0.8); Eosinophils % (auto) 6.2 % (0.0-7.0); Hematocrit 42.9 % (41.0-53.0); Hemoglobin 14.8 g/dL (13.5-17.5); Lymphocytes % (auto) 20.8 % (10.0-50.0); Mean Corpuscular Hemoglobin 32.8 pg (28.0-32.0); Mean Corpuscular Hgb Conc. 34.5 g/dL (32.0-36.0); Mean Corpuscular Volume 95.1 fL (80.0-100.0); Monocytes # (auto) 0.4 10 ^3/uL (0-1.3); Monocytes % (auto) 8.4 % (0.0-12.0); Neutrophils # (auto) 3.2 10 ^3/uL (1.6-8.6); Neutrophils % (auto) 64.1 % (37.0-80.0); Red Blood Cells 4.51 10^6/uL (4.5-5.90); Red Cell Distribution Width 13.6 % (11.8-14.3); White Blood Cell 4.9 10^3/uL (4.4-10.8)
[2021-06-08 09:21] LABS: BUN/Creatinine Ratio 18.4; Bilirubin, Total 2.5 mg/dL (0.2-1.0); Total Protein 6.6 g/dL (6.4-8.2)
== END | disposition home or self-care (01) ==
LOC: LAB 08:08
PROVIDERS: ATTEND Nurse Practitioner Family
DX: I10 Essential (primary) hypertension (principal); I25.5 Ischemic cardiomyopathy; N40.0 Benign prostatic hyperplasia without lower urinary tract symptoms
CPT/HCPCS: 36415; 80053; 80061; 85025

== ENCOUNTER 2021-07-19 11:08 | Observation (INO) | payer OTHER ==
[~2021-07-19] VITALS: Ht 175.3 cm; Wt 83.9 kg
[2021-07-19] MEDS ORDERED: SODIUM CHLORIDE 0.9% 1,000 ML IV ONE ×2 (11:30→16:30)
[2021-07-19 11:35] LABS: Basophils # (auto) 0 10 ^3/uL (0-0.2); Basophils % (auto) 0.6 % (0.0-2.0); Eosinophils # (auto) 0.3 10 ^3/uL (0-0.8); Eosinophils % (auto) 5.4 % (0.0-7.0); Hematocrit 44.7 % (41.0-53.0); Hemoglobin 15.5 g/dL (13.5-17.5); Lymphocytes # (auto) 1.3 10 ^3/uL (0.4-5.4); Lymphocytes % (auto) 21.8 % (10.0-50.0); Mean Corpuscular Hemoglobin 33.2 pg (28.0-32.0); Mean Corpuscular Hgb Conc. 34.8 g/dL (32.0-36.0); Mean Corpuscular Volume 95.5 fL (80.0-100.0); Monocytes # (auto) 0.5 10 ^3/uL (0-1.3); Monocytes % (auto) 8.3 % (0.0-12.0); Neutrophils # (auto) 3.7 10 ^3/uL (1.6-8.6); Neutrophils % (auto) 63.9 % (37.0-80.0); Nucleated Red Blood Cells % 0.1 %; Red Blood Cells 4.68 10^6/uL (4.5-5.90); Red Cell Distribution Width 13.4 % (11.8-14.3); White Blood Cell 5.8 10^3/uL (4.4-10.8)
[2021-07-19 12:03] LABS: Albumin 3.2 g/dL (3.4-5.0); Anion Gap 5 (5-15); Blood Urea Nitrogen 27 mg/dL (7-18); Calcium 8.6 mg/dL (8.5-10.1); Carbon Dioxide 24 mmol/L (21-32); Chloride 112 mmol/L (98-107); Glucose 101 mg/dL (74-106); Potassium 4.4 mmol/L (3.5-5.1); Sodium 141 mmol/L (136-145)
[2021-07-19 12:09] LABS: Alanine Aminotransferase 25 U/L (16-61); Alkaline Phosphatase 79 U/L (45-117); Aspartate Aminotransferase 14 U/L (15-37); BUN/Creatinine Ratio 22.3; Bilirubin, Total 2.7 mg/dL (0.2-1.0); GFR African American 76 mL/min; GFR Non-African American 63 mL/min; Total Protein 6.8 g/dL (6.4-8.2)
[2021-07-19] MEDS ORDERED: ONDANSETRON HCL 4 MG/2 ML VIAL IV PRN (16:30)
[2021-07-19] MEDS ORDERED: NITROGLYCERIN 0.4 MG SL TAB SL PRN (16:30)
[2021-07-19] MEDS ORDERED: HYDROcodone-ACET 5/325MG TAB PO PRN (16:30)
[2021-07-19] MEDS ORDERED: ACETAMINOPHEN 500 MG TAB PO PRN (16:30)
[2021-07-19] MEDS ORDERED: MORPHINE SULFATE INJECTION 2 MG/ML SYRG IV PRN ×2 (16:30)
[2021-07-19] MEDS: RIVAROXABAN 20 MG TAB PO SCH (17:37)
[2021-07-19] MEDS ORDERED: ATORVASTATIN 20 MG TAB PO SCH (22:00)
[2021-07-19] MEDS ORDERED: LORazepam 2MG/ML-1ML VIAL IV PRN (23:15)
[2021-07-20] MEDS: SACUBITRIL-VALSARTAN 24mg/26mg TAB PO SCH ×2 (00:41→10:51)
[2021-07-20] MEDS: SOTALOL HCL 80 MG TAB PO SCH ×2 (00:41→10:51)
[2021-07-20] MEDS ORDERED: LORazepam 2MG/ML-1ML VIAL IV STA (04:51)
[2021-07-20 05:00] VITALS: BP 121/70
[2021-07-20] MEDS ORDERED: DIGOXIN 0.25 MG TAB PO SCH (07:00)
[2021-07-20 08:00] VITALS: BP 113/74
[2021-07-20 09:33] VITALS: BP 113/74
[2021-07-20 12:32] VITALS: BP 115/69
[2021-07-20] MEDS ORDERED: IOHEXOL 350 MG/ML 100ML IJ ONE (14:37)
[2021-07-20 15:17] VITALS: BP 113/74
[2021-07-20 17:00] VITALS: BP 115/73
[2021-07-20] MEDS: RIVAROXABAN 20 MG TAB PO SCH (17:15)
== END 2021-07-20 17:34 | disposition home or self-care (01) ==
LOC: ER 11:08 → EDBD 11:08 → TELE 16:26 → TELE-WESTW 07-20 03:00
PROVIDERS: ADMIT Nurse Practitioner Acute Care; ATTEND Internal Medicine
DX: R07.89 Other chest pain (principal); Z20.822 Contact with and (suspected) exposure to COVID-19; R55 Syncope and collapse; I25.5 Ischemic cardiomyopathy; I95.9 Hypotension, unspecified; J44.9 Chronic obstructive pulmonary disease, unspecified; J98.11 Atelectasis; G08 Intracranial and intraspinal phlebitis and thrombophlebitis; G31.9 Degenerative disease of nervous system, unspecified; I48.91 Unspecified atrial fibrillation; E78.5 Hyperlipidemia, unspecified; R20.2 Paresthesia of skin; I11.0 Hypertensive heart disease with heart failure; I50.9 Heart failure, unspecified; H91.91 Unspecified hearing loss, right ear; E78.00 Pure hypercholesterolemia, unspecified; E11.9 Type 2 diabetes mellitus without complications; D84.9 Immunodeficiency, unspecified; F17.200 Nicotine dependence, unspecified, uncomplicated; Z87.442 Personal history of urinary calculi; Z95.0 Presence of cardiac pacemaker; Z79.01 Long term (current) use of anticoagulants; Z79.51 Long term (current) use of inhaled steroids
CPT/HCPCS: 36415; 70450; 71045; 71275; 80053; 84484; 85025; 87426; 93005; 95819; 96360; 96361; 99285; G0378; J7030; Q9967

== ENCOUNTER → 2021-08-28 | Outpatient (CLI) | payer OTHER | END | disposition home or self-care (01) | LOC: XY 12:34 | PROVIDERS: ATTEND Internal Medicine Cardiovascular Disease | DX: I26.99 Other pulmonary embolism without acute cor pulmonale (principal) | CPT/HCPCS: 78582; A9540; A9558; 71045 ==

== ENCOUNTER → 2021-10-05 | Outpatient (CLI) | payer OTHER ==
[2021-10-05 09:17] LABS: INR 1.1 (0.9-1.15); Partial Thromboplastin Time 28.8 sec (23.6-33.0)
== END | disposition home or self-care (01) ==
LOC: LAB 08:46
PROVIDERS: ATTEND Nurse Practitioner Family
DX: M25.512 Pain in left shoulder (principal)
CPT/HCPCS: 36415; 85610; 85730

== ENCOUNTER → 2021-10-06 | Outpatient (CLI) | payer OTHER ==
[~2021-10-06] MED LIST changes: +IOHEXOL 300 MG/ML 100ML BOTTLE IJ ONE; +LIDOCAINE 2%HCL (LOCAL ANESTH.) INJ 20ML MDV ONE
== END | disposition home or self-care (01) ==
LOC: XY 08:43
PROVIDERS: ATTEND Nurse Practitioner Family
DX: M25.512 Pain in left shoulder (principal); I20.9 Angina pectoris, unspecified; I50.9 Heart failure, unspecified; J44.9 Chronic obstructive pulmonary disease, unspecified; Z82.49 Family history of ischemic heart disease and other diseases of the circulatory system; Z83.3 Family history of diabetes mellitus; Z80.8 Family history of malignant neoplasm of other organs or systems
CPT/HCPCS: 23350; 73020; 73201; 76000; Q9967

== ENCOUNTER → 2021-10-19 | Outpatient (CLI) | payer OTHER ==
[~2021-10-19] MED LIST changes: -IOHEXOL 300 MG/ML 100ML BOTTLE IJ ONE; -LIDOCAINE 2%HCL (LOCAL ANESTH.) INJ 20ML MDV ONE
== END | disposition home or self-care (01) ==
LOC: LAB 13:46
PROVIDERS: ATTEND Nurse Practitioner Family
DX: E03.9 Hypothyroidism, unspecified (principal)
CPT/HCPCS: 36415; 84439; 84443

== ENCOUNTER 2021-12-30 15:34 | Emergency (ER) | payer OTHER ==
[~2021-12-30] VITALS: Ht 175.3 cm; Wt 89.4 kg
[2021-12-30] MEDS ORDERED: SODIUM CHLORIDE 0.9% 1,000 ML IV ONE (16:30)
[2021-12-30] MEDS ORDERED: BISMUTH SUBSALICYLATE 262 MG CHEW PO ONE (17:45)
[2021-12-30] MEDS ORDERED: ONDANSETRON HCL 4 MG/2 ML VIAL IV ONE (17:45)
[2021-12-30] MEDS: MAGNESIUM SULFATE 1GM/100ML 100 ML IV SCH ×2 (18:05→18:06)
[2021-12-30 19:11] LABS: Urine Bacteria NONE SEEN /hpf (None Seen); Urine Blood Negative /uL (Negative); Urine Mucus FEW (None Seen); Urine Specific Gravity 1.026 (1.001-1.035); Urine WBC 1 /hpf (0 - 3)
[2021-12-30 19:19] LABS: Basophils # (auto) 0.1 10 ^3/uL (0-0.2); Basophils % (auto) 1.3 % (0.0-2.0); Eosinophils # (auto) 0.1 10 ^3/uL (0-0.8); Eosinophils % (auto) 2.3 % (0.0-7.0); Hematocrit 40.9 % (41.0-53.0); Lymphocytes # (auto) 0.6 10 ^3/uL (0.4-5.4); Lymphocytes % (auto) 10.3 % (10.0-50.0); Mean Corpuscular Hemoglobin 32.3 pg (28.0-32.0); Mean Corpuscular Hgb Conc. 34.2 g/dL (32.0-36.0); Mean Corpuscular Volume 94.5 fL (80.0-100.0); Monocytes # (auto) 0.5 10 ^3/uL (0-1.3); Monocytes % (auto) 9.9 % (0.0-12.0); Neutrophils # (auto) 4.2 10 ^3/uL (1.6-8.6); Neutrophils % (auto) 76.2 % (37.0-80.0); Nucleated Red Blood Cells % 0.2 %; Red Blood Cells 4.32 10^6/uL (4.5-5.90); White Blood Cell 5.5 10^3/uL (4.4-10.8)
[2021-12-30 19:37] LABS: Albumin 2.8 g/dL (3.4-5.0); Calcium 7.7 mg/dL (8.5-10.1); Magnesium 1.8 mg/dL (1.6-2.6); Potassium 3.5 mmol/L (3.5-5.1)
[2021-12-30 19:40] LABS: INR 1.52 (0.9-1.15); Partial Thromboplastin Time 38.7 sec (23.6-33.0)
[2021-12-30 19:42] LABS: BUN/Creatinine Ratio 18.8; Bilirubin, Total 3.2 mg/dL (0.2-1.0)
[2021-12-30 19:42] LABS: Amphetamine Screen, Urine NEGATIVE (NEGATIVE); Barbiturate Scree,Urine NEGATIVE (NEGATIVE); Benzodiazephine Screen, Urine NEGATIVE (NEGATIVE); Cannabinoid Screen, Urine NEGATIVE (NEGATIVE); Cocaine Screen, Urine NEGATIVE (NEGATIVE); Opiate Scree,Urine POSITIVE (NEGATIVE); Phencyclidine Screen, Urine NEGATIVE (NEGATIVE)
[2021-12-30 21:00] VITALS: BP 91/64
== END 2021-12-31 05:06 | disposition home or self-care (01) ==
LOC: ER 15:34
DX: G45.9 Transient cerebral ischemic attack, unspecified (principal); K52.9 Noninfective gastroenteritis and colitis, unspecified; E86.1 Hypovolemia; I48.91 Unspecified atrial fibrillation; R94.31 Abnormal electrocardiogram [ECG] [EKG]; I11.0 Hypertensive heart disease with heart failure; I50.9 Heart failure, unspecified; J44.9 Chronic obstructive pulmonary disease, unspecified; E11.9 Type 2 diabetes mellitus without complications; E78.5 Hyperlipidemia, unspecified; Z87.442 Personal history of urinary calculi; Z88.0 Allergy status to penicillin
CPT/HCPCS: 36415; 70450; 71045; 74176; 80053; 80162; 80307; 81001; 83690; 83735; 84443; 84484; 85025; 85610; 85730; 93005; 96365; 96375; 99285; J2405; J3475; J7030

== ENCOUNTER → 2022-01-11 | Outpatient (CLI) | payer OTHER | END | disposition home or self-care (01) | LOC: Rad HDHVI 14:30 | PROVIDERS: ATTEND Internal Medicine Cardiovascular Disease | DX: I65.22 Occlusion and stenosis of left carotid artery (principal); I10 Essential (primary) hypertension; R07.9 Chest pain, unspecified | CPT/HCPCS: 93880 ==

== ENCOUNTER → 2022-01-22 | Outpatient (CLI) | payer OTHER ==
[2022-01-22 12:10] LABS: Magnesium 2.4 mg/dL (1.6-2.6); Potassium 4.6 mmol/L (3.5-5.1)
== END | disposition home or self-care (01) ==
LOC: LAB 10:37
PROVIDERS: ATTEND Internal Medicine Cardiovascular Disease
DX: E87.6 Hypokalemia (principal)
CPT/HCPCS: 36415; 83735; 84132

== ENCOUNTER 2022-04-23 09:44 | Inpatient (IN) | payer OTHER ==
[~2022-04-23] VITALS: Ht 175.3 cm; Wt 92.2 kg
[2022-04-23] MEDS ORDERED: ALBUTEROL SULF 2.5 MG/0.5ML(0.5%) NEB SOLN NEB ONE (11:00)
[2022-04-23] MEDS ORDERED: IPRATROPIUM BROM 0.5 MG/2.5ML INH SOL NEB ONE (11:00)
[2022-04-23] MEDS ORDERED: methylPREDNISolone SOD SUCC 125 MG/2 ML VL IV ONE (11:00)
[2022-04-23 11:49] LABS: Basophils # (auto) 0 10 ^3/uL (0-0.2); Basophils % (auto) 0.4 % (0.0-2.0); Eosinophils # (auto) 0 10 ^3/uL (0-0.8); Eosinophils % (auto) 0.9 % (0.0-7.0); Hematocrit 49.3 % (41.0-53.0); Hemoglobin 16.4 g/dL (13.5-17.5); Lymphocytes # (auto) 1.3 10 ^3/uL (0.4-5.4); Lymphocytes % (auto) 24.3 % (10.0-50.0); Mean Corpuscular Hemoglobin 31.4 pg (28.0-32.0); Mean Corpuscular Hgb Conc. 33.2 g/dL (32.0-36.0); Mean Corpuscular Volume 94.6 fL (80.0-100.0); Monocytes # (auto) 0.6 10 ^3/uL (0-1.3); Monocytes % (auto) 10.5 % (0.0-12.0); Neutrophils # (auto) 3.5 10 ^3/uL (1.6-8.6); Neutrophils % (auto) 63.9 % (37.0-80.0); Nucleated Red Blood Cells % 0.1 %; Red Blood Cells 5.22 10^6/uL (4.5-5.90); Red Cell Distribution Width 13.9 % (11.8-14.3); White Blood Cell 5.5 10^3/uL (4.4-10.8)
[2022-04-23 12:29] LABS: Albumin 3.6 g/dL (3.4-5.0); BUN/Creatinine Ratio 11.6; Calcium 8.7 mg/dL (8.5-10.1)
[2022-04-23 12:32] LABS: Bilirubin, Total 2.5 mg/dL (0.2-1.0); Total Protein 7.4 g/dL (6.4-8.2)
[2022-04-23] MEDS ORDERED: FUROSEMIDE 40 MG/4 ML VIAL IV ONE (13:45)
[2022-04-23] MEDS ORDERED: levoFLOXacin 500MG 100 ML IV ONE (13:45)
[2022-04-23] MEDS ORDERED: NITROGLYCERIN 0.4 MG SL TAB SL PRN (14:30)
[2022-04-23] MEDS ORDERED: MORPHINE SULFATE INJ 2 MG/ml SYRG IV PRN (14:30)
[2022-04-23 14:45] LABS: Urine Bacteria NONE SEEN /hpf (None Seen); Urine Blood Negative /uL (Negative); Urine Mucus FEW (None Seen); Urine Specific Gravity 1.023 (1.001-1.035); Urine WBC 1 /hpf (0 - 3)
[2022-04-23 14:56] VITALS: BP 131/68
[2022-04-23 16:07] LABS: Cholesterol 89 mg/dL (< 200)
[2022-04-23 16:10] LABS: HDL Cholesterol 37 mg/dL (40-59); LDL Cholesterol 52 mg/dL (< 100); Triglycerides 95 mg/dL (< 150)
[2022-04-23 16:19] LABS: INR 1.12 (0.9-1.15)
[2022-04-23] MEDS: RIVAROXABAN 20 MG TAB PO SCH (17:34)
[2022-04-23] MEDS: BUDESONIDE (INHALATION) 0.5 MG/2 ML NEB NEB SCH (18:18)
[2022-04-23] MEDS: ALBUTEROL SULF 2.5 MG/0.5ML(0.5%) NEB SOLN NEB PRN (18:18)
[2022-04-23 22:00] VITALS: BP 116/65
[2022-04-23] MEDS ORDERED: PATIENTS OWN MEDICATION (Budesonide-Formoterol Fumarate (Symbicort) 2 PUFF) INH SCH (22:00)
[2022-04-23] MEDS: SOTALOL HCL 80 MG TAB PO SCH (22:54)
[2022-04-23] MEDS: SACUBITRIL-VALSARTAN 24mg/26mg TAB PO SCH (22:54)
[2022-04-23] MEDS: ATORVASTATIN 20 MG TAB PO SCH (22:55)
[2022-04-24 05:00] VITALS: BP 120/73
[2022-04-24] MEDS: BUDESONIDE (INHALATION) 0.5 MG/2 ML NEB NEB SCH ×2 (06:18→22:07)
[2022-04-24] MEDS: ALBUTEROL SULF 2.5 MG/0.5ML(0.5%) NEB SOLN NEB PRN (06:18)
[2022-04-24] MEDS: DIGOXIN 0.25 MG TAB PO SCH (06:24)
[2022-04-24 08:26] LABS: Basophils # (auto) 0 10 ^3/uL (0-0.2); Basophils % (auto) 0.1 % (0.0-2.0); Eosinophils # (auto) 0 10 ^3/uL (0-0.8); Hematocrit 48.4 % (41.0-53.0); Hemoglobin 16.2 g/dL (13.5-17.5); Mean Corpuscular Hemoglobin 31.7 pg (28.0-32.0); Mean Corpuscular Hgb Conc. 33.6 g/dL (32.0-36.0); Mean Corpuscular Volume 94.4 fL (80.0-100.0); Monocytes # (auto) 0.5 10 ^3/uL (0-1.3); Neutrophils # (auto) 5.1 10 ^3/uL (1.6-8.6); Neutrophils % (auto) 77.9 % (37.0-80.0); Nucleated Red Blood Cells % 0.7 %; Red Blood Cells 5.13 10^6/uL (4.5-5.90); Red Cell Distribution Width 13.6 % (11.8-14.3); White Blood Cell 6.5 10^3/uL (4.4-10.8)
[2022-04-24 08:33] LABS: Potassium 4.2 mmol/L (3.5-5.1)
[2022-04-24 08:42] LABS: Albumin 3.2 g/dL (3.4-5.0); BUN/Creatinine Ratio 22.6; Calcium 8.8 mg/dL (8.5-10.1); Total Protein 7.5 g/dL (6.4-8.2)
[2022-04-24 08:51] VITALS: BP 118/71
[2022-04-24] MEDS: AZITHROMYCIN 500MG/ 250ML 250 ML IV SCH (09:39)
[2022-04-24] MEDS: SOTALOL HCL 80 MG TAB PO SCH ×2 (09:40→21:45)
[2022-04-24] MEDS: SACUBITRIL-VALSARTAN 24mg/26mg TAB PO SCH ×2 (09:40→21:45)
[2022-04-24] MEDS: FUROSEMIDE 20 MG/2 ML VIAL IV SCH (09:40)
[2022-04-24] MEDS: METOPROLOL SUCCINATE XL 50 MG TAB PO SCH (09:44)
[2022-04-24] MEDS ORDERED: cefTRIAXone 1GM/50ML D5W 50 ML IV ONE (12:00)
[2022-04-24] MEDS ORDERED: ACETAMINOPHEN 325 MG TAB PO PRN (13:15)
[2022-04-24 13:32] VITALS: BP 130/71
[2022-04-24] MEDS: methylPREDNISolone SOD SUCC 125 MG/2 ML VL IV SCH ×2 (14:17→21:45)
[2022-04-24 17:14] VITALS: BP 128/83
[2022-04-24] MEDS: RIVAROXABAN 20 MG TAB PO SCH (17:21)
[2022-04-24] MEDS: ATORVASTATIN 20 MG TAB PO SCH (21:45)
[2022-04-24 22:00] VITALS: BP 106/70
[2022-04-25 05:00] VITALS: BP 102/53
[2022-04-25] MEDS: methylPREDNISolone SOD SUCC 125 MG/2 ML VL IV SCH ×3 (06:12→22:14)
[2022-04-25] MEDS: DIGOXIN 0.25 MG TAB PO SCH (06:13)
[2022-04-25 08:06] VITALS: BP 99/59
[2022-04-25] MEDS ORDERED: cefTRIAXone 1GM/50ML D5W 50 ML IV SCH (09:00)
[2022-04-25] MEDS: SACUBITRIL-VALSARTAN 24mg/26mg TAB PO SCH ×2 (09:04→22:11)
[2022-04-25] MEDS: SOTALOL HCL 80 MG TAB PO SCH ×2 (09:04→22:13)
[2022-04-25] MEDS: METOPROLOL SUCCINATE XL 50 MG TAB PO SCH (09:05)
[2022-04-25] MEDS: FUROSEMIDE 20 MG/2 ML VIAL IV SCH (09:05)
[2022-04-25] MEDS: AZITHROMYCIN 500MG/ 250ML 250 ML IV SCH (09:05)
[2022-04-25] MEDS: BUDESONIDE (INHALATION) 0.5 MG/2 ML NEB NEB SCH ×2 (10:12→19:08)
[2022-04-25] MEDS: ALBUTEROL SULF 2.5 MG/0.5ML(0.5%) NEB SOLN NEB PRN ×2 (10:12→19:08)
[2022-04-25 13:30] VITALS: BP 103/67
[2022-04-25 16:23] VITALS: BP 100/54
[2022-04-25] MEDS: RIVAROXABAN 20 MG TAB PO SCH (18:12)
[2022-04-25] MEDS: ATORVASTATIN 20 MG TAB PO SCH (22:10)
[2022-04-25 23:02] VITALS: BP 118/83
[2022-04-26 05:00] VITALS: BP 107/55
[2022-04-26] MEDS: BUDESONIDE (INHALATION) 0.5 MG/2 ML NEB NEB SCH (06:49)
[2022-04-26] MEDS: ALBUTEROL SULF 2.5 MG/0.5ML(0.5%) NEB SOLN NEB PRN (06:49)
[2022-04-26] MEDS: methylPREDNISolone SOD SUCC 125 MG/2 ML VL IV SCH ×2 (06:55→14:36)
[2022-04-26] MEDS: DIGOXIN 0.25 MG TAB PO SCH (06:57)
[2022-04-26 09:00] VITALS: BP 99/76
[2022-04-26] MEDS: FUROSEMIDE 20 MG/2 ML VIAL IV SCH (10:00)
[2022-04-26] MEDS: METOPROLOL SUCCINATE XL 50 MG TAB PO SCH (10:00)
[2022-04-26] MEDS: SOTALOL HCL 80 MG TAB PO SCH (10:00)
[2022-04-26] MEDS: SACUBITRIL-VALSARTAN 24mg/26mg TAB PO SCH (10:01)
[2022-04-26] MEDS: AZITHROMYCIN 500MG/ 250ML 250 ML IV SCH (10:01)
[2022-04-26 11:13] VITALS: BP 99/76
[2022-04-26] MEDS ORDERED: AZIT500T66 PO (11:27)
[2022-04-26] MEDS ORDERED: PRED20TA2 PO (11:27)
[2022-04-26 12:55] VITALS: BP 99/76
[2022-04-26 13:00] VITALS: BP 97/68
[2022-04-27] MEDS ORDERED: AZITHROMYCIN 250 MG TAB PO SCH (10:00)
== END 2022-04-26 16:46 | disposition home or self-care (01) | DRG 193 ==
LOC: ER 09:44 → TELE 14:45 → TELE-WESTW 20:10
PROVIDERS: ADMIT Registered Nurse; ATTEND Registered Nurse
DX: J18.9 Pneumonia, unspecified organism (principal); I50.23 Acute on chronic systolic (congestive) heart failure; J96.01 Acute respiratory failure with hypoxia; J44.1 Chronic obstructive pulmonary disease with (acute) exacerbation; J44.0 Chronic obstructive pulmonary disease with (acute) lower respiratory infection; I11.0 Hypertensive heart disease with heart failure; I48.0 Paroxysmal atrial fibrillation; D69.6 Thrombocytopenia, unspecified; E11.9 Type 2 diabetes mellitus without complications; E78.5 Hyperlipidemia, unspecified; Z20.822 Contact with and (suspected) exposure to COVID-19; I25.10 Atherosclerotic heart disease of native coronary artery without angina pectoris; Z87.442 Personal history of urinary calculi; Z95.0 Presence of cardiac pacemaker; Z88.0 Allergy status to penicillin; Z79.899 Other long term (current) drug therapy
CPT/HCPCS: 36415; 71045; 80053; 80061; 81001; 83036; 83880; 84484; 85025; 85610; 87040; 87086; 93005; 94640; 96365; 96375; 99291; G0378; J0696; J1956

== ENCOUNTER → 2022-12-10 | Outpatient (CLI) | payer OTHER ==
[~2022-12-10] MED LIST changes: +AZIT500T66 PO; +PRED20TA2 PO
[2022-12-10 10:38] LABS: Albumin 3.2 g/dL (3.4-5.0); Calcium 8.1 mg/dL (8.5-10.1)
[2022-12-10 10:42] LABS: BUN/Creatinine Ratio 14.3; Bilirubin, Total 2.9 mg/dL (0.2-1.0); Total Protein 6.8 g/dL (6.4-8.2)
[2022-12-10 11:52] LABS: Potassium 4.1 mmol/L (3.5-5.1)
== END | disposition home or self-care (01) ==
LOC: LAB 09:54
PROVIDERS: ATTEND Internal Medicine Cardiovascular Disease
DX: I11.0 Hypertensive heart disease with heart failure (principal); I50.23 Acute on chronic systolic (congestive) heart failure
CPT/HCPCS: 36415; 80053; 83880

== ENCOUNTER → 2023-04-15 | Outpatient (CLI) | payer OTHER ==
[~2023-04-15] MED LIST changes: -SIMV-8 PO; +SIMV20TA20 PO
== END | disposition home or self-care (01) ==
LOC: Rad HDHVI 12:58
PROVIDERS: ATTEND Internal Medicine Cardiovascular Disease
DX: I11.9 Hypertensive heart disease without heart failure (principal); R00.2 Palpitations
CPT/HCPCS: 93306

== ENCOUNTER → 2023-05-30 | Outpatient (CLI) | payer OTHER | END | disposition home or self-care (01) | LOC: Rad HDHVI 14:32 | PROVIDERS: ATTEND Internal Medicine Cardiovascular Disease | DX: I51.7 Cardiomegaly (principal) | CPT/HCPCS: 93880 ==

== ENCOUNTER → 2023-05-30 | Outpatient (CLI) | payer OTHER ==
[2023-05-30 08:56] LABS: Basophils # (auto) 0 10 ^3/uL (0-0.2); Basophils % (auto) 0.2 % (0.0-2.0); Eosinophils # (auto) 0.2 10 ^3/uL (0-0.8); Hemoglobin 16.5 g/dL (13.5-17.5); Lymphocytes # (auto) 1.4 10 ^3/uL (0.4-5.4); Lymphocytes % (auto) 20.7 % (10.0-50.0); Mean Corpuscular Hemoglobin 32.3 pg (28.0-32.0); Mean Corpuscular Hgb Conc. 33.7 g/dL (32.0-36.0); Mean Corpuscular Volume 95.9 fL (80.0-100.0); Monocytes # (auto) 0.5 10 ^3/uL (0-1.3); Monocytes % (auto) 7.7 % (0.0-12.0); Neutrophils # (auto) 4.5 10 ^3/uL (1.6-8.6); Neutrophils % (auto) 68.4 % (37.0-80.0); Nucleated Red Blood Cells % 0.1 %; Red Blood Cells 5.11 10^6/uL (4.5-5.90); Red Cell Distribution Width 13.9 % (11.8-14.3); White Blood Cell 6.5 10^3/uL (4.4-10.8)
[2023-05-30 09:27] LABS: Albumin 3.5 g/dL (3.4-5.0)
[2023-05-30 09:33] LABS: Free T4 (Free Thyroxine) 0.84 ng/dL (0.89-1.76); Prostate Specific Antigen 0.7 ng/mL (0.0-4.0)
[2023-05-30 09:39] LABS: BUN/Creatinine Ratio 12.1 (10.0-20.0); Bilirubin, Total 3.1 mg/dL (0.2-1.0); Calcium 8.8 mg/dL (8.5-10.1); Total Protein 7.2 g/dL (6.4-8.2)
== END | disposition home or self-care (01) ==
LOC: LAB 08:38
PROVIDERS: ATTEND Nurse Practitioner Family
DX: Z00.00 Encounter for general adult medical examination without abnormal findings (principal); E11.22 Type 2 diabetes mellitus with diabetic chronic kidney disease; I51.7 Cardiomegaly
CPT/HCPCS: 36415; 80053; 80061; 82043; 82570; 83036; 84153; 84439; 84443; 85025

== ENCOUNTER → 2023-11-24 | Outpatient (CLI) | payer OTHER | END | disposition home or self-care (01) | LOC: Rad HDHVI 14:45 | PROVIDERS: ATTEND Internal Medicine Cardiovascular Disease | DX: I08.3 Combined rheumatic disorders of mitral, aortic and tricuspid valves (principal); R00.2 Palpitations; E78.5 Hyperlipidemia, unspecified | CPT/HCPCS: 93306 ==

== ENCOUNTER → 2024-06-07 | Outpatient (CLI) | payer OTHER ==
[2024-06-07 08:20] LABS: Basophils # (auto) 0 10 ^3/uL (0-0.2); Basophils % (auto) 0.3 % (0.0-2.0); Eosinophils # (auto) 0.8 10 ^3/uL (0-0.8); Eosinophils % (auto) 11.5 % (0.0-7.0); Hematocrit 48.3 % (41.0-53.0); Hemoglobin 16.4 g/dL (13.5-17.5); Lymphocytes # (auto) 1.6 10 ^3/uL (0.4-5.4); Lymphocytes % (auto) 23.9 % (10.0-50.0); Mean Corpuscular Hemoglobin 32.4 pg (28.0-32.0); Mean Corpuscular Hgb Conc. 33.9 g/dL (32.0-36.0); Mean Corpuscular Volume 95.5 fL (80.0-100.0); Monocytes # (auto) 0.5 10 ^3/uL (0-1.3); Monocytes % (auto) 7.1 % (0.0-12.0); Neutrophils # (auto) 3.9 10 ^3/uL (1.6-8.6); Neutrophils % (auto) 57.2 % (37.0-80.0); Red Blood Cells 5.06 10^6/uL (4.5-5.90); Red Cell Distribution Width 13.6 % (11.8-14.3); White Blood Cell 6.8 10^3/uL (4.4-10.8)
[2024-06-07 08:51] LABS: Alanine Aminotransferase 24 U/L (7-40); Alkaline Phosphatase 103 U/L (46-116); Calcium 9.5 mg/dL (8.7-10.4); Carbon Dioxide 31 mmol/L (20-30); Chloride 109 mmol/L (98-107); Triglycerides 117 mg/dL (< 150)
[2024-06-07 08:52] LABS: Albumin 4.2 g/dL (3.2-4.8); Anion Gap 5 (5-15); Aspartate Aminotransferase 24 U/L (13-40); BUN/Creatinine Ratio 11.6 (10.0-20.0); Bilirubin, Total 4.4 mg/dL (0.2-1.0); Blood Urea Nitrogen 15 mg/dL (9-23); Cholesterol 121 mg/dL (< 200); Glucose 99 mg/dL (74-106); HDL Cholesterol 36 mg/dL (40-59); LDL Cholesterol 65 mg/dL (< 100); Sodium 145 mmol/L (136-145); Total Protein 6.8 g/dL (5.7-8.2)
[2024-06-07 09:32] LABS: Creatinine, Urine 122.04 mg/dL (30.0-125.0)
[2024-06-07 12:41] LABS: Prostate Specific Antigen 0.61 ng/mL (0.0-4.0)
[2024-06-07 13:40] LABS: Free T4 (Free Thyroxine) 1.21 ng/dL (0.89-1.76)
== END | disposition home or self-care (01) ==
LOC: LAB 07:58
PROVIDERS: ATTEND Nurse Practitioner Family
DX: E11.22 Type 2 diabetes mellitus with diabetic chronic kidney disease (principal); N18.9 Chronic kidney disease, unspecified; J44.9 Chronic obstructive pulmonary disease, unspecified; R35.1 Nocturia
CPT/HCPCS: 36415; 80053; 80061; 82043; 82570; 83036; 84153; 84439; 84443; 85025

== ENCOUNTER → 2024-08-17 | Outpatient (CLI) | payer OTHER ==
[2024-08-17 14:16] LABS: Urine Bacteria None Seen /hpf (None Seen)
[2024-08-17 14:21] LABS: Basophils # (auto) 0 10 ^3/uL (0-0.2); Basophils % (auto) 0.4 % (0.0-2.0); Eosinophils # (auto) 0.2 10 ^3/uL (0-0.8); Eosinophils % (auto) 2.8 % (0.0-7.0); Hematocrit 45.8 % (41.0-53.0); Hemoglobin 15.5 g/dL (13.5-17.5); Lymphocytes # (auto) 1.8 10 ^3/uL (0.4-5.4); Lymphocytes % (auto) 31.3 % (10.0-50.0); Mean Corpuscular Hemoglobin 32.5 pg (28.0-32.0); Mean Corpuscular Hgb Conc. 33.8 g/dL (32.0-36.0); Mean Corpuscular Volume 96.3 fL (80.0-100.0); Monocytes # (auto) 0.4 10 ^3/uL (0-1.3); Monocytes % (auto) 7.6 % (0.0-12.0); Neutrophils # (auto) 3.3 10 ^3/uL (1.6-8.6); Neutrophils % (auto) 57.9 % (37.0-80.0); Nucleated Red Blood Cells % 0.1 %; Platelet Count (auto) 177 10^3/uL (140-450); Red Blood Cells 4.76 10^6/uL (4.5-5.90); Red Cell Distribution Width 14.2 % (11.8-14.3); White Blood Cell 5.7 10^3/uL (4.4-10.8)
[2024-08-17 14:45] LABS: INR 1.1 (0.9-1.15); Partial Thromboplastin Time 28.5 SEC (24.5-34.5); Prothrombin Time 11.6 sec (9.3-11.8)
[2024-08-17 14:53] LABS: Alanine Aminotransferase 30 U/L (7-40); Albumin 4.1 g/dL (3.2-4.8); Alkaline Phosphatase 114 U/L (46-116); Anion Gap 6 (5-15); Aspartate Aminotransferase 21 U/L (13-40); BUN/Creatinine Ratio 14.2 (10.0-20.0); Bilirubin, Total 2.7 mg/dL (0.2-1.0); Blood Urea Nitrogen 17 mg/dL (9-23); Carbon Dioxide 28 mmol/L (20-31); Chloride 108 mmol/L (98-107); Glucose 99 mg/dL (74-106); Potassium 4.5 mmol/L (3.5-5.1); Sodium 142 mmol/L (136-145); Total Protein 6.8 g/dL (5.7-8.2)
[2024-08-17 14:58] LABS: Urine Blood Negative /uL (Negative); Urine Clarity Clear (Clear); Urine Color Light-Yellow (Yellow); Urine Mucus FEW (None Seen); Urine Protein, UAD Negative (Negative); Urine Specific Gravity 1.014 (1.001-1.035); Urine Urobilinogen Normal (Negative); Urine WBC <1 /hpf (0 - 3)
== END | disposition home or self-care (01) ==
LOC: LAB 14:01
PROVIDERS: ATTEND Internal Medicine Gastroenterology
DX: Z01.812 Encounter for preprocedural laboratory examination (principal); R13.10 Dysphagia, unspecified
CPT/HCPCS: 36415; 80053; 81001; 85025; 85610; 85730

== ENCOUNTER 2024-08-24 08:22 | Day surgery (SDC) | payer OTHER ==
[~2024-08-24] VITALS: Ht 175.3 cm; Wt 85.7 kg
[~2024-08-24 08:22] MED LIST changes: -AZIT500T66 PO; -CHOL10009 PO; -PRED20TA2 PO
[2024-08-24] MEDS ORDERED: GLYCOPYRROLATE 0.2 MG/ML 1ML VIAL ONE (09:48)
[2024-08-24] MEDS ORDERED: fentaNYL CITRATE 100 MCG/2 ML VL ONE (09:48)
[2024-08-24] MEDS ORDERED: MIDAZOLAM HCL 2MG/2ML 2ml VIAL (1mg/ml) ONE (09:48)
[2024-08-24] MEDS ORDERED: ONDANSETRON HCL 4 MG/2 ML VIAL ONE (09:48)
[2024-08-24] MEDS ORDERED: PROPOFOL 10 MG/ML 20 ML IV ONE (09:48)
[2024-08-24] MEDS ORDERED: KETAMINE 50mg/ML 1ml syringe ONE (10:20)
[2024-08-24 10:53] VITALS: TEMP 97.6; O2SAT 100
[2024-08-24 11:23] VITALS: O2SAT 96
[2024-08-24 11:38] VITALS: BP 105/70; PULSE 85; RESP 21
--- NOTE | 2024-08-24 16:39 | DVHOP2 ---
Operative Report DATE OF OPERATION: 08/24/24 PROCEDURE: Upper Endoscopy with biopsy and dilate esophagus unguided. PREOPERATIVE INDICATION: The patient is a 74 -year-old male undergoing endoscopy for nausea vomiting and oropharyngeal dysphagia POSTOPERATIVE DIAGNOSES: 1. 2 cm sliding-type hiatal hernia with grade a erosive esophagitis 2. [id number]-zbnlpera gastritis and all the antrum and body of the stomach with superficial erosions and some flecks of old blood 3. Moderate duodenitis with multiple small duodenal ulcers 4. There were tertiary contractions of the esophagus but no clear-cut esophageal stricture and no mass were seen. 5. Esophagus was dilated with Dominguez number 44 and 48 serially PROCEDURE PERFORMED BY: Zander Dutta GI NURSE: Marlo SCOPE: Olympus videoendoscope. ASA CLASS: 3. PREOPERATIVE MEDICATIONS: Mac sedation, Dr. Santa PROCEDURE IN DETAIL: After obtaining an informed consent, the patient was placed on left lateral decubitus position. The patient was then sedated with t he above medications. A bite block was placed between his teeth. The endoscope was then passed through the oropharynx, into the esophagus, and through the stomach and pylorus up to the second and third part of the duodenum. The endoscope was then withdrawn. The 2nd and 3rd part of the duodenal was normal. Duodenal bulb and postbulbar area showed moderate duodenitis with multiple small duodenal ulcers The pre-pyloric area and antrum and distal body showed gastritis with superficial erosions and flecks of old blood. On retroflexion the fundus and cardia were normal. Duodenal and gastric biopsies were obtained. The endoscope was then withdrawn into the distal esophagus. Patient had a 1-2 cm sliding-type hiatal hernia with grade a erosive esophagitis There were tertiary contractions of the esophagus but no evidence of esophageal stricture or mass. The endoscope was then withdrawn. The esophagus was then serially dilated with Dominguez number 44 and 48 with minimal resistance. Repeat endoscopy confirmed adequate dilatation. Patient did have two areas of columnar rest in the proximal esophagus from which biopsies were obtained and GE junction biopsies were also obtained The patient tolerated the procedure well without difficulty. COMPLICATIONS : None SPECIMENS: Duodenal biopsies Gastric biopsies GE junction biopsies Proximal esophageal biopsies DISPOSITION: Stable D/C to home PLAN: 1. Await for biopsy result 2. Will place pt on Protonix 40 mg bid 3. Drink warm liquids with his meals and chew food well 4. Resume soft mechanical diet advance as tolerated 5. Outpatient follow up with me in 4-6 weeks to review results and discuss further management ZANDER DUTTA MD Aug 24, 2024 16:39
--- NOTE | 2024-08-24 16:43 | DVHOP2 ---
Operative Report DATE OF OPERATION: 08/24/24 PROCEDURE: Colonoscopy with hot snare polypectomy. PREOPERATIVE INDICATION: The patient is a 74 -year-old male undergoing colonoscopy for surveillance with personal history of colon polyps POSTOPERATIVE DIAGNOSES: 1. 5 mm benign-appearing transverse colon polyp was seen and removed by snare polypectomy and another 1 cm benign-appearing polyp was seen and removed by snare polyp polypectomy 2. There was a 5 mm benign-appearing ascending colon polyp that was seen and removed by snare polypectomy 3. There was a 3-4 mm benign-appearing descending colon polyp that was seen and removed by snare polypectomy 4. There was a 1 cm rectosigmoid polyp that was removed by hot snare polypectomy and two or three other benign polyps were removed by cold biopsy forceps 5. 1+ internal hemorrhoids otherwise essentially normal examination up to the cecum and terminal ileum PROCEDURE PERFORMED BY: Zander Goins M.D. SCOPE: Olympus videocolonoscope. ASA CLASS: 3. PREOPERATIVE MEDICATIONS: Mac sedation, Dr. Santa PROCEDURE IN DETAIL: After obtaining an informed consent, the patient was placed on left lateral decubitus position. He was then sedated with the above medications. A rectal examination was performed that was normal. The colonoscope was then passed through the anus into the rectosigmoid and through the descending, transverse, and ascending colon up to the cecum with visualization of the appendiceal orifice, base of the cecum and the ileocecal valve. The colonoscope was then withdrawn. In the ascending colon there was a subcentimeter benign-appearing polyp that was seen and removed by snare polypectomy and the specimens were retrieved In the transverse colon there were two polyps subcentimeter that were removed by snare polypectomy but one specimens were retrieved There was a 3-4 mm benign-appearing descending colon polyp that was seen and removed by snare polypectomy and the specimens were retrieved There were three benign-appearing 2 mm rectal polyps were removed by cold biopsy forceps. There was a 5-6 mm benign-appearing rectal polyp that was seen and removed by snare polypectomy These polyps were removed. On retroflexion he had 1+ internal hemorrhoids The patient tolerated the procedure well without difficulty. WITHDRAWAL TIME: 18 minutes QUALITY OF THE PREP: [place] Bowel Prep score: 9. COMPLICATIONS : None SPECIMENS: Transverse colon polyps Ascending colon polyps Descending colon polyp Rectal polyps DISPOSITION: Stable D/C to home PLAN: 1. Repeat colonoscopy based on biopsy result likely in three years 2. Resume GI soft diet advance as tolerated 3. Increase fluid and fiber intake 4. Outpatient follow up with me in 4-6 weeks to review results and discuss further management 5. Hold Xarelto and anticoagulants for five days because of multiple polypectomy ZANDER GOINS MD Aug 24, 2024 16:43
== END 2024-08-24 11:51 | disposition home or self-care (01) ==
LOC: GI 08:22
PROVIDERS: ATTEND Internal Medicine Gastroenterology
DX: Z12.11 Encounter for screening for malignant neoplasm of colon (principal); R13.12 Dysphagia, oropharyngeal phase; D12.2 Benign neoplasm of ascending colon; D12.4 Benign neoplasm of descending colon; D12.3 Benign neoplasm of transverse colon; D12.7 Benign neoplasm of rectosigmoid junction; K29.50 Unspecified chronic gastritis without bleeding; K64.8 Other hemorrhoids; K44.9 Diaphragmatic hernia without obstruction or gangrene; K29.80 Duodenitis without bleeding; K26.9 Duodenal ulcer, unspecified as acute or chronic, without hemorrhage or perforation; K20.80 Other esophagitis without bleeding; J44.9 Chronic obstructive pulmonary disease, unspecified; G89.29 Other chronic pain; E78.5 Hyperlipidemia, unspecified; I48.20 Chronic atrial fibrillation, unspecified; I11.0 Hypertensive heart disease with heart failure; I50.9 Heart failure, unspecified; J45.909 Unspecified asthma, uncomplicated; Z88.0 Allergy status to penicillin; Z86.0100 Personal history of colon polyps, unspecified; Z88.6 Allergy status to analgesic agent; Z88.8 Allergy status to other drugs, medicaments and biological substances; Z98.890 Other specified postprocedural states; Z79.899 Other long term (current) drug therapy; Z82.49 Family history of ischemic heart disease and other diseases of the circulatory system; Z83.3 Family history of diabetes mellitus; Z90.89 Acquired absence of other organs; Z95.0 Presence of cardiac pacemaker
CPT/HCPCS: 43239; 43450; 45380; 45385; 88305; 88312; 88342; J2250; J2405; J2704; J3010; J7030

== ENCOUNTER → 2024-10-09 | Outpatient (CLI) | payer OTHER ==
--- NOTE | 2024-10-09 11:28 | DVH ---
XY CHEST TWO VIEWS ROUTINE CLINICAL HISTORY: SOB COMPARISON: Chest radiograph 04/24/2022 TECHNIQUE: Frontal and lateral view of the chest was obtained FINDINGS: Lines and Tubes: None. Left-sided cardiac AICD. Lungs: No focal consolidation. Pleura: No effusion. No pneumothorax. Cardiomediastinal contours: Unremarkable Bones: No acute osseous abnormality. IMPRESSION: 1. No radiographic evidence of acute cardiopulmonary disease. HS:Y
== END | disposition home or self-care (01) ==
LOC: Rad HDHVI 11:02
PROVIDERS: ATTEND Internal Medicine Cardiovascular Disease
DX: J40 Bronchitis, not specified as acute or chronic (principal); R05.9 Cough, unspecified; R06.02 Shortness of breath
CPT/HCPCS: 71046

== ENCOUNTER 2024-11-21 08:17 | Day surgery (SDC) | payer OTHER ==
[2024-11-19 10:44] LABS: Basophils # (auto) 0 10 ^3/uL (0-0.2); Basophils % (auto) 0.5 % (0.0-2.0); Eosinophils # (auto) 0.3 10 ^3/uL (0-0.8); Eosinophils % (auto) 4.8 % (0.0-7.0); Hematocrit 44.4 % (41.0-53.0); Lymphocytes % (auto) 28.4 % (10.0-50.0); Mean Corpuscular Hemoglobin 31.8 pg (28.0-32.0); Mean Corpuscular Hgb Conc. 33.8 g/dL (32.0-36.0); Mean Corpuscular Volume 94.2 fL (80.0-100.0); Monocytes # (auto) 0.6 10 ^3/uL (0-1.3); Monocytes % (auto) 9.1 % (0.0-12.0); Neutrophils # (auto) 4.1 10 ^3/uL (1.6-8.6); Neutrophils % (auto) 57.2 % (37.0-80.0); Platelet Count (auto) 229 10^3/uL (140-450); Red Blood Cells 4.71 10^6/uL (4.5-5.90); Red Cell Distribution Width 13.2 % (11.8-14.3); White Blood Cell 7.1 10^3/uL (4.4-10.8)
[2024-11-19 10:59] LABS: Urine Bacteria FEW /hpf (None Seen); Urine Blood Negative /uL (Negative); Urine Clarity Clear (Clear); Urine Color Yellow (Yellow); Urine Protein, UAD Negative (Negative); Urine Specific Gravity 1.025 (1.001-1.035); Urine Squamous Epithelial Cell FEW /hpf (<5); Urine Urobilinogen 2 mg/dL (Negative); Urine WBC 1 /HPF (0-3); Urine pH 5.5 (5.0-9.0)
[2024-11-19 11:06] LABS: Alanine Aminotransferase 19 U/L (7-40); Albumin 4.4 g/dL (3.2-4.8); Anion Gap 4 (5-15); Aspartate Aminotransferase 18 U/L (13-40); BUN/Creatinine Ratio 18.8 (10.0-20.0); Calcium 9.7 mg/dL (8.7-10.4); Carbon Dioxide 29 mmol/L (20-31); Glucose 90 mg/dL (74-106); Potassium 4.2 mmol/L (3.5-5.1); Sodium 141 mmol/L (136-145)
[2024-11-19 11:07] LABS: Alkaline Phosphatase 121 U/L (46-116); Bilirubin, Total 1.8 mg/dL (0.2-1.0); Blood Urea Nitrogen 24 mg/dL (9-23); Chloride 108 mmol/L (98-107); Total Protein 6.9 g/dL (5.7-8.2)
[2024-11-19 11:09] LABS: INR 1.05 (0.9-1.15); Partial Thromboplastin Time 26.8 SEC (24.5-34.5); Prothrombin Time 11.1 sec (9.3-11.8)
[~2024-11-21] VITALS: Ht 175.3 cm; Wt 85.7 kg
[2024-11-21] MEDS ORDERED: SUCCINYLCHOLINE CHLORIDE 20 MG/ML 10ML VIAL IV ONE (08:47)
[2024-11-21] MEDS ORDERED: CLINDAMYCIN 600MG IV 50 ML IV ONE (08:47)
[2024-11-21] MEDS ORDERED: fentaNYL CITRATE 100 MCG/2 ML VL ONE (08:48)
[2024-11-21] MEDS ORDERED: ONDANSETRON HCL 4 MG/2 ML VIAL ONE (09:04)
[2024-11-21] MEDS ORDERED: ROCURONIUM 10MG/ML 10ML VIAL IV ONE (09:04)
[2024-11-21] MEDS ORDERED: PROPOFOL 10 MG/ML 20 ML IV ONE (09:04)
[2024-11-21] MEDS ORDERED: SUGAMMADEX 200mg/2ml Vial (100MG/ML) IV ONE (09:33)
[2024-11-21] MEDS ORDERED: MEPERIDINE HCL (25 MG/ML) 1ML VIAL ONE (09:41)
[2024-11-21 09:49] VITALS: PULSE 76; RESP 12; TEMP 97.7
[2024-11-21] MEDS ORDERED: ACE3T PO (09:54)
[2024-11-21] MEDS ORDERED: ONDANSETRON HCL 4 MG/2 ML VIAL IV ONE (10:00)
[2024-11-21] MEDS ORDERED: ACETAMINOPHEN IV 1000 MG/100ML (10MG/ML) IV PRN (10:00)
[2024-11-21] MEDS ORDERED: HYDROmorphone HCL 2 MG/ML VL/or syr ONE (10:24)
[2024-11-21] MEDS: HYDROmorphone HCL 2 MG/ML VL/or syr IV PRN (10:25)
--- NOTE | 2024-11-21 10:29 | DVHOP ---
DATE OF SURGERY: 11/21/2024 PREOPERATIVE DIAGNOSIS: Left inguinal hernia. POSTOPERATIVE DIAGNOSES: Direct left inguinal hernia. SURGEON: Solo Gustafson MD CREATIVE SERVICES DESIGNER: Juanjo Miller. ANESTHESIA: General endotracheal. ANESTHESIOLOGIST: Dr. Mendoza. DESCRIPTION OF PROCEDURE: Under general anesthesia with the patient's skin prepped and draped and infiltrated with 0.25% Marcaine at the site of the incision over the visible palpable bulge in the left groin, incision was made and deepened with electrocautery. Sapna's fascia divided down onto the fibers of the external oblique aponeurosis, which was opened in the direction of the fibers. The patient's ilioinguinal nerve was identified, reflected laterally and protected. Cord structures encircled with a Lore drain and retracted laterally. There was a large direct herniation, which was reduced and held back with a Baby Colo retractor. At this point, a Quintin type repair of the inguinal floor was accomplished using nonabsorbable sutures through the conjoined tendon down onto Nate's ligament and then transitioned on to the reflecting portion of Poupart's ligament. The wound was irrigated, irrigant was aspirated. Hemostasis was meticulously accomplished, found to be complete. At the termination of procedure, the testicle was returned into its normal anatomical position in the scrotal compartment. The ilioinguinal nerve was returned as well as the cord structures and the external oblique aponeurosis was approximated. Subcutaneous tissues and skin were approximated using Monocryl sutures, Dermabond glue and Steri-Strips. The patient remained stable throughout the procedure, left the operating room following an accurate needle and sponge count. His Jennifer May was thoroughly informed on the phone at [phone]. MD TAYO Coon/[place] TID: [id number] RECEIPT: [id number]
[2024-11-21 11:45] VITALS: BP 125/85; PULSE 75; RESP 16; O2SAT 95
[2024-11-21] MEDS: BUPIVACAINE HCL 0.25% P/F 10 ML VIAL ONE (17:30)
[2024-11-21] MEDS: LIDOCAINE W/ EPINEPHRINE 1% 20ML VIAL ONE (17:31)
== END 2024-11-21 12:00 | disposition home or self-care (01) ==
LOC: SUR 08:17
PROVIDERS: ATTEND Surgery
DX: K40.90 Unilateral inguinal hernia, without obstruction or gangrene, not specified as recurrent (principal); I11.0 Hypertensive heart disease with heart failure; I50.9 Heart failure, unspecified; J44.9 Chronic obstructive pulmonary disease, unspecified; I48.91 Unspecified atrial fibrillation; Z95.0 Presence of cardiac pacemaker; I42.9 Cardiomyopathy, unspecified; Z98.41 Cataract extraction status, right eye; Z98.42 Cataract extraction status, left eye; Z98.890 Other specified postprocedural states; Z90.49 Acquired absence of other specified parts of digestive tract; Z88.0 Allergy status to penicillin; Z88.8 Allergy status to other drugs, medicaments and biological substances
CPT/HCPCS: 36415; 49505; 80053; 81001; 85025; 85610; 85730; 86850; 86900; 86901; C1781; J0330; J1171; J2175; J2405; J2704; J3010; J3490

== ENCOUNTER → 2025-02-21 | Outpatient (CLI) | payer OTHER ==
[~2025-02-21] MED LIST changes: +ACE3T PO
[2025-02-21 08:09] LABS: Basophils # (auto) 0 10 ^3/uL (0-0.2); Basophils % (auto) 0.4 % (0.0-2.0); Eosinophils # (auto) 0.4 10 ^3/uL (0-0.8); Eosinophils % (auto) 7.6 % (0.0-7.0); Hematocrit 44.2 % (41.0-53.0); Hemoglobin 15.2 g/dL (13.5-17.5); Lymphocytes # (auto) 1.2 10 ^3/uL (0.4-5.4); Lymphocytes % (auto) 23.9 % (10.0-50.0); Mean Corpuscular Hemoglobin 31.6 pg (28.0-32.0); Mean Corpuscular Hgb Conc. 34.4 g/dL (32.0-36.0); Mean Corpuscular Volume 91.8 fL (80.0-100.0); Monocytes # (auto) 0.4 10 ^3/uL (0-1.3); Monocytes % (auto) 8.6 % (0.0-12.0); Neutrophils % (auto) 59.5 % (37.0-80.0); Nucleated Red Blood Cells % 0.1 %; Platelet Count (auto) 156 10^3/uL (140-450); Red Blood Cells 4.81 10^6/uL (4.5-5.90); Red Cell Distribution Width 14.2 % (11.8-14.3); White Blood Cell 5.1 10^3/uL (4.4-10.8)
[2025-02-21 08:20] LABS: Creatinine, Urine 121.18 mg/dL (30.0-125.0)
[2025-02-21 08:26] LABS: Alanine Aminotransferase 23 U/L (7-40); Albumin 4.1 g/dL (3.2-4.8); Anion Gap 6 (5-15); Aspartate Aminotransferase 16 U/L (13-40); BUN/Creatinine Ratio 15.7 (10.0-20.0); Blood Urea Nitrogen 19 mg/dL (9-23); Calcium 9.7 mg/dL (8.7-10.4); Carbon Dioxide 28 mmol/L (20-31); Cholesterol 130 mg/dL (< 200); Glucose 105 mg/dL (74-106); LDL Cholesterol 75 mg/dL (< 100); Potassium 4.6 mmol/L (3.5-5.1); Sodium 144 mmol/L (136-145); Total Protein 6.7 g/dL (5.7-8.2); Triglycerides 90 mg/dL (< 150)
[2025-02-21 08:29] LABS: Alkaline Phosphatase 134 U/L (46-116); Bilirubin, Total 2.9 mg/dL (0.2-1.0); Chloride 110 mmol/L (98-107); HDL Cholesterol 40 mg/dL (40-59)
[2025-02-21 09:06] LABS: Prostate Specific Antigen 0.6 ng/mL (0.0-4.0)
[2025-02-21 09:10] LABS: Ferritin 104.8 ng/mL (22-322)
[2025-02-22 10:11] LABS: Hepatitis B Surface Antigen Negative (Negative)
[2025-02-22 10:34] LABS: Hepatitis C Antibody Negative (Negative)
== END | disposition home or self-care (01) ==
LOC: LAB 06:57
PROVIDERS: ATTEND Internal Medicine Gastroenterology
DX: I13.0 Hypertensive heart and chronic kidney disease with heart failure and stage 1 through stage 4 chronic kidney disease, or unspecified chronic kidney disease (principal); E11.22 Type 2 diabetes mellitus with diabetic chronic kidney disease; N18.9 Chronic kidney disease, unspecified; I50.9 Heart failure, unspecified; R35.1 Nocturia; R94.5 Abnormal results of liver function studies; Z00.01 Encounter for general adult medical examination with abnormal findings
CPT/HCPCS: 36415; 80053; 80061; 82043; 82105; 82570; 82728; 83036; 84153; 84443; 85025; 86803; 87340

== ENCOUNTER 2025-04-05 09:56 | Inpatient (IN) | payer OTHER ==
[~2025-04-05] VITALS: Ht 175.3 cm; Wt 89.0 kg
--- NOTE | 2025-04-05 10:08 | ED.PDOC ---
General HPI Comments This is the 74 year old male presenting to the ED with chief complaint of hematuria. Patient reports that he has been experiencing right sided flank pain since yesterday along with associated hematuria for the past 2 hours. Patient relays that he is unsure if it is a kidney stone due to having them before and the pain is not the same. Patient denies any N/V/D, abdominal pain, fever, chills, or dysuria. Time Seen by MD: 10:06 Primary Care Provider: ADRIANA DAVIS Reviewed notes: Nurses Notes, Medications, Allergies Allergies: Coded Allergies: Penicillins (Verified Allergy, Severe, SWELLING, APNEA, 08/17/24) Ascorbate (Verified Allergy, Mild, SCRATCHY THROAT, 07/19/21) Aspirin (Verified Allergy, Unknown, Hives, 08/17/24) Uncoded Allergies: [place]ra (Allergy, Severe, ANAPHYLAXIS, 04/15/21) Home Meds Active Scripts Acetaminophen W/ Codeine (Tylenol W/Cod #3) 1 Tab Tb, 1 TAB PO Q4HP PRN for 10 Days, #50 TAB Prov:JULY EDGAR NP 11/21/24 Reported Medications [place]-3 Fatty Acids ([place] 3 500 500 mg) 1 Cap Cap, 1 CAP PO DAILY for SUPPLEMENT 04/15/21 Metoprolol Succinate (Metoprolol Succinate Er) 100 Mg Tab, 1 TAB PO QAM for HYHPERTENSION 04/15/21 Digoxin (Digoxin) 250 Mcg Tab, 1 TAB PO QAM for ARRYTHMIA 04/15/21 Vitamin E (E1000) 1,000 Unit Cap, 1 CAP PO DAILY for SUPPLEMENT 04/15/21 Magnesium Oxide (MAGNESIUM OXIDE) 400 Mg Tab, 1 TAB PO DAILY for SUPPLEMENT 04/15/21 Sacubitril-Valsartan (Entresto 24-26 mg) 1 Tab Tab, 1 TAB PO BID for HYPERT ENSION 06/20/18 Rivaroxaban (XARELTO) 20 Mg Tab, 1 TAB PO DAILY@DINNER for ARRYTHMIA 03/17/18 Sotalol Hcl (Sotalol Hcl) 80 Mg Tab, 1 TAB PO BID for ARRYTHMIA 03/17/18 Budesonide-Formoterol Fumarate (Symbicort) 1 Aer Aer, 2 PUFF INH BID for ASTHMA 07/22/15 Simvastatin (Simvastatin) 20 Mg Tab, 1 TAB PO QPM for HIGH CHOLESTEROL 07/22/15 Fluticasone Propionate (Flonase) 0.05 % Spr, 1 SPR ROSANGELA DAILY PRN for ALLERGIES 12/29/12 Information Source: Patient Mode of Arrival: Ambulatory Severity: Moderate Inability to void: None Timing: Hours Duration: Since onset Prehospital treatment: None Onset: Spontaneous Symptoms: Hematuria Location: (R) Flank Penile discharge: None Modifying factors: None associated signs and symptoms: Flank Pain, Hematuria Past Medical History PAST MEDICAL HISTORY: AFIB, Asthma, CHF, COPD, DM, High Lipids, HTN, Kidney Stones Surgical History: Appendectomy, Hernia Repair, Pacemaker, Tonsillectomy Family History Family History: Unobtainable Social History Smoker: Non-Smoker Alcohol: Occasionally Drugs: Denies Drug Use Lives In: Home Constitutional: denies: chills, diaphoresis, fatigue, fever, malaise, sweats, weakness, others EENTM: denies: blurred vision, double vision, ear bleeding, ear discharge, ear drainage, ear pain, ear ringing, eye pain, eye redness, hearing loss, mouth pain, mouth swelling, nasal discharge, nose bleeding, nose congestion, nose pain, photophobia, tearing, throat pain, throat swelling, voice changes, others Respiratory: denies: cough, hemoptysis, orthopnea, SOB at rest, shortness of breath, SOB with excertion, stridor, wheezing, others Cardiovascular: denies: chest pain, dizzy spells, diaphoresis, Dyspnea on exertion, edema, irregular heart beat, left arm pain, lightheadedness, palpitations, PND, syncope, others Gastrointestinal: reports: diarrhea; denies: abdomen distended, abdominal pain, blood streaked bowels, constipated, dysphagia, difficulty swallowing, hematemesis, melena, nausea, poor appetite, poor fluid intake, rectal bleeding, rectal pain, vomiting, others Genitourinary: reports: flank pain, hematuria; denies: burning, dysuria, frequency, incontinence, penile discharge, penile sore, pain, testicle pain, te sticle swelling, urgency, others Neurological: denies: dizziness, fainting, headache, left sided numbness, left sided weakness, numbness, paresthesia, pre-existing deficit, right sided numbness, right sided weakness, seizure, speech problems, tingling, tremors, weakness, others Musculoskeletal: denies: back pain, gout, joint pain, joint swelling, muscle pain, muscle stiffness, neck pain, others Integumetry: denies: bruises, change in color, change in hair/nails, dryness, laceration, lesions, lumps, rash, wounds, others Allergic/Immunocompromised: denies: Difficulty Healing, Frequent Infections, Hives, Itching, others Hematologic/Lymphatic: denies: anemia, blood clots, easy bleeding, easy bruising, swollen glands, others Endocrine: denies: excessive hunger, excessive sweating, excessive thirst, excessive urination, flushing, intolerance to cold, intolerance to heat, unexplained weight gain, unexplained weight loss, others Psychiatric: denies: anxiety, bipolar disorder, depression, hopeless, panic disorder, schizophrenia, sleepless, suicidal, others All Other Systems: Reviewed and Negative Physical Exam General Appearance: No Apparent Distress, Normal HEENT: Normal ENT Inspection, Pharynx Normal, TMs Normal Neck: Full Range of Motion, Non-Tender, Normal, Normal Inspection Respiratory: Chest Non-Tender, Lungs Clear, No Accessory Muscle Use, No Respiratory Distress, Normal Breath Sounds Cardiovascular: No Edema, No JVD, No Murmur, No Gallop, Normal Peripheral Pulses, Regular Rate/Rhythm Breast Exam: Deferred Gastrointestinal: No Organomegaly, Non Tender, No Pulsatile Mass, Normal Bowel Sounds, Soft Genitalia: Deferred Pelvic: Deferred Rectal: Deferred Extremities: No calf tenderness, Normal capillary refill, Normal inspection, Normal range of motion, Non-tender, No pedal edema Musculoskeletal : Apperance: Normal Neurologic: Alert, matchbook assembler II-XII nml as Tested, No Motor Deficits, Normal Affect, Normal Mood, No Sensory Deficits Cerebellar Function: Normal Reflexes: Normal Skin: Dry, Normal Color, Warm Lymphatic: No Adenopathy Was a procedure done? Was a procedure done?: No Differential Diagnosis Kidney stone (Female): N/A Kidney stone (Male): Pancreatitis, Pyelonephritis, Urinary obstruction, Urolithiasis, Urinary tract infection Urinary Problem (Male): Urethritis, UTI Urinary Problem (Female): N/A X-Ray, Labs, Meds, VS Vital Signs Date Time Temp Pulse Resp B/P (MAP) Pulse Ox O2 Delivery O2 Flow Rate FiO2 04/05/25 12:00 97.4 75 18 126/80 (95) 97 97.4 04/05/25 10:33 76 16 95 Room Air* 0 21 04/05/25 10:27 97.0 76 16 121/84 (96) 95 97.0 04/05/25 10:16 98.9 76 16 130/78 (95) 100 98.9 Lab Test 04/05/25 10:40 04/05/25 10:10 Range/Units White Blood Count 5.2 4.4-10.8 10^3/uL Red Blood Count 4.82 4.5-5.90 10^6/uL Hemoglobin 14.9 13.5-17.5 g/dL Hematocrit 44.4 41.0-53.0 % Mean Corpuscular Volume 92.0 80.0-100.0 fL Mean Corpuscular Hemoglobin 31.0 28.0-32.0 pg Mean Corpuscular Hemoglobin Concent 33.7 32.0-36.0 g/dL Red Cell Distribution Width 14.1 11.8-14.3 % Platelet Count 158 140-450 10^3/uL Mean Platelet Volume 8.3 6.9-10.8 fL Neutrophils (%) (Auto) 57.9 37.0-80.0 % Lymphocytes (%) (Auto) 24.1 10.0-50.0 % Monocytes (%) (Auto) 9.2 0.0-12.0 % Eosinophils (%) (Auto) 8.6 H 0.0-7.0 % Basophils (%) (Auto) 0.2 0.0-2.0 % Neutrophils # (Auto) 3.0 1.6-8.6 10 ^3/uL Lymphocytes # (Auto) 1.2 0.4-5.4 10 ^3/uL Monocytes # (Auto) 0.5 0-1.3 10 ^3/uL Eosinophils # (Auto) 0.4 0-0.8 10 ^3/uL Basophils # (Auto) 0 0-0.2 10 ^3/uL Nucleated Red Blood Cells 0.0 % Sodium Level 146 H 136-145 mmol/L Potassium Level 4.3 3.5-5.1 mmol/L Chloride Level 112 H 98-107 mmol/L Carbon Dioxide Level 26 20-31 mmol/L Anion Gap 8 5-15 Blood Urea Nitrogen 19 9-23 mg/dL Creatinine 1.09 0.700-1.30 mg/dL Glomerular Filtration Rate Calc 72 >90 mL/min BUN/Creatinine Ratio 17.4 10.0-20.0 Serum Glucose 82 74-106 mg/dL Calcium Level 9.4 8.7-10.4 mg/dL Troponin I High Sensitivity 7 </=54 ng/L Urine Color Dark-brown Yellow Urine Clarity Cloudy H Clear Urine pH 5.5 5.0-9.0 Urine Specific [place] 1.023 1.001-1.035 Urine Protein 1+ H Negative Urine Ketones Negative Negative Urine Blood 3+ H Negative /uL Urine Nitrite Negative Negative Urine Bilirubin Negative Negative Urine Urobilinogen Normal Negative mg/dL Urine Leukocyte Esterase 1+ Negative /uL Urine RBC 6434 0 - 3 /hpf Urine WBC Clumps Present None Seen /hpf Urine Microscopic WBC 21 H 0-3 /HPF Urine Squamous Epithelial Cells None seen <5 /hpf Urine Bacteria None seen None Seen /hpf Urine Mucus Few None Seen Urine Yeast (Budding) Moderate None Seen /hpf Urine Glucose Normal Normal mg/dL Current Medications Medications (Trade) Dose Ordered Sig/Sury Route Start Time Stop Time Status Last Admin Sodium Chloride 1,000 ml @ 1,000 mls/hr Q1H ONCE IV 04/05/25 10:15 04/05/25 11:14 DC 04/05/25 10:32 Time of 1ST Reevaluation: 11:06 Reevaluation 1ST: Unchanged Patient Education/Counseling: Diagnosis, Treatment Family Education/Counseling: No Family Present Additional Information Previous visits reviewed: The following tests were ordered, and results were reviewed by me: Additional Information was gathered from interviewing the following independent historians: None I reviewed and agreed with the following test results read by other providers: None I discussed treatment and results with medical personnel and: patient Comprehensive systems review obtained and negative except for what is stated in the HPI. Departure 1 Departure Time of Disposition: 12:22 (Patient presented with abdominal pain that was concerning for possible appendicits, gastritis, cholecystitis, colitis, gastroenteritis, sbo, or orther possible surgical emergency. Data: 1. I ordered and reviewed the result of at least 3 labs including a CBC, BMP, and Urinalysis. 2. I independently interpreted the following tests: CT Abdoment and Pelvis is concerning for right ureteral stone.Risk:This patient has a high risk of morbidity due to further diagnostic testing or treatment and may suffer from an acute abdominal process disorder. Workup reveals right renal stone and hydronephrosis and patient should be admitted for further workup. and possible expert consultation. ) Impression: Primary Impression: Renal colic on right side Additional Impression: Hydronephrosis Qualified Codes: N13.2 - Hydronephrosis with renal and ureteral calculous obstruction Disposition: ADMITTED INPATIENT Admit to: Med Surg Condition: Guarded Critical Care Note Critical Care Time?: Yes Critical care comment: Intractable abdominal pain Authorized and Performed by: Vivienne New MD Total critical care time: Approximately 36 minutes Due to a high probability of clinically significant, life threatening deterioration, the patient required my highest level of preparedness to intervene emergently and I personally spent this critical care time directly and personally managing the patient. This critical care time included obtaining a history; examining the patient; pulse oximetry; ordering and review of studies; arranging urgent treatment with development of a management plan; evaluation of patient's response to treatment; frequent reassessment; and, discussions with other providers. This critical care time was performed to assess and manage the high probability of imminent, life-threatening deterioration that could result in multi-organ failure. It was exclusive of separately billable procedures and treating other patients and teaching time. Please see my other sections and the rest of the note for further information on patient assessment and treatment. Stability Stability form required: No Heart Score Heart Score: Heart Score Response (Comments) Value History N/A 0 EKG N/A 0 Age N/A 0 Risk Factors N/A 0 Troponin N/A 0 Total 0 I personally scribed for VIVIENNE NEW MD ([email or web address]) on 04/05/25 at 10:08. Electronically submitted by Charles Cuadra ([email or web address]). VIVIENNE NEW MD Apr 05, 2025 10:08
[2025-04-05 10:21] LABS: Urine Bacteria None Seen /hpf (None Seen)
[2025-04-05] MEDS: ONDANSETRON HCL 4 MG/2 ML VIAL IV ONE (10:30)
[2025-04-05] MEDS: MORPHINE SULFATE 4 MG/ML SYR/VIAL IV ONE (10:30)
[2025-04-05] MEDS: SODIUM CHLORIDE 0.9% 1,000 ML IV ONE (10:32)
[2025-04-05 10:33] VITALS: PULSE 76; RESP 16; O2SAT 95
[2025-04-05 10:51] LABS: Urine Blood 3+ /uL (Negative); Urine Budding Yeast MODERATE /hpf (None Seen); Urine Color Dark-Brown (Yellow); Urine Mucus FEW (None Seen); Urine Protein, UAD 1+ (Negative); Urine Specific Gravity 1.023 (1.001-1.035); Urine Squamous Epithelial Cell None Seen /hpf (<5); Urine Urobilinogen Normal (Negative); Urine WBC Clumps PRESENT /hpf (None Seen); Urine pH 5.5 (5.0-9.0)
[2025-04-05 10:54] LABS: Urine WBC 21 /HPF (0-3)
[2025-04-05 10:57] LABS: Urine Clarity Cloudy (Clear)
[2025-04-05 10:58] LABS: Basophils # (auto) 0 10 ^3/uL (0-0.2); Basophils % (auto) 0.2 % (0.0-2.0); Eosinophils # (auto) 0.4 10 ^3/uL (0-0.8); Eosinophils % (auto) 8.6 % (0.0-7.0); Hematocrit 44.4 % (41.0-53.0); Hemoglobin 14.9 g/dL (13.5-17.5); Lymphocytes # (auto) 1.2 10 ^3/uL (0.4-5.4); Lymphocytes % (auto) 24.1 % (10.0-50.0); Mean Corpuscular Hgb Conc. 33.7 g/dL (32.0-36.0); Monocytes # (auto) 0.5 10 ^3/uL (0-1.3); Monocytes % (auto) 9.2 % (0.0-12.0); Neutrophils % (auto) 57.9 % (37.0-80.0); Platelet Count (auto) 158 10^3/uL (140-450); Red Blood Cells 4.82 10^6/uL (4.5-5.90); Red Cell Distribution Width 14.1 % (11.8-14.3); White Blood Cell 5.2 10^3/uL (4.4-10.8)
[2025-04-05 11:05] LABS: Potassium 4.3 mmol/L (3.5-5.1)
[2025-04-05 11:06] LABS: Anion Gap 8 (5-15); Carbon Dioxide 26 mmol/L (20-31); Chloride 112 mmol/L (98-107); Sodium 146 mmol/L (136-145)
[2025-04-05 11:07] LABS: Calcium 9.4 mg/dL (8.7-10.4)
[2025-04-05 11:11] LABS: BUN/Creatinine Ratio 17.4 (10.0-20.0); Blood Urea Nitrogen 19 mg/dL (9-23); Glucose 82 mg/dL (74-106)
--- NOTE | 2025-04-05 12:11 | DVH ---
Exam: CT CT AB PEL WO CON-NO ORAL OR IV History: right flank pain Comparison Study: [facility] on DOS: 01/07/22, CT ABD PELVIS WO CONTRAST on DOS: 12/30/21 TECHNIQUE: Multidetector CT of the abdomen was performed from lung bases to pubic symphysis. Imaging was performed without IV contrast. Axial, coronal and sagittal multiplanar reformats were obtained fr om the axial data set by the technologist. Radiation Dose Information: CT Dose: CTDI volume is 10.93 mGy. Dose-length product is 600.33 mGy*cm FINDINGS: Evaluation of solid organs is limited due to lack of intravenous contrast use. Findings: Lung Bases: No acute or significant lung base finding. Normal heart size. No pleural or pericardial effusion. Liver: Hepatic steatosis. Gallbladder and Biliary Tree: Gallstones are noted. Spleen: Unremarkable Pancreas: The pancreas is grossly normal in appearance. Adrenal Glands: Unremarkable Kidneys: SMALL RIGHT HYDRONEPHROSIS SECONDARY TO AN OBSTRUCTING 2 MM RIGHT MID URETERAL STONE JUST AN TERIOR TO THE RIGHT PSOAS MUSCLE. Bladder: Grossly unremarkable for degree of distention. Bowel: Small hiatal hernia The stomach is grossly normal in appearance. Small bowel and colon are nor mal in caliber and distribution. The appendix is not visualized; however, no secondary findings of a cute appendicitis identified. Ascites: Absent Lymphadenopathy: No mesenteric, retroperitoneal or periportal lymphadenopathy. Abdominal Wall and Mesentery: Unremarkable. Vasculature: The visualized abdominal aorta is normal in size and caliber. Evaluation of abdominal a nd pelvic vessels is limited due to lack of intravenous contrast. Pelvic Organs: Unremarkable Musculoskeletal: No aggressive focal bony lesions, acute fractures or dislocation. Soft tissues: Unremarkable IMPRESSION: Hepatic steatosis. Small hiatal hernia SMALL RIGHT HYDRONEPHROSIS SECONDARY TO AN OBSTRUCTING 2 MM RIGHT MID URETERAL STONE JUST ANTERIOR TO THE RIGHT PSOAS MUSCLE. Radiation optimization: All CT scans at this facility use at least one of these dose optimization carlee hniques: automated exposure control mA and/or kV adjustment per patient size (includes targeted exam s where dose is matched to clinical indication) or iterative reconstruction.
[2025-04-05] MEDS: SODIUM CHLORIDE 0.9% 1,000 ML IV SCH (22:30)
[2025-04-05] MEDS ORDERED: ACETAMINOPHEN 325 MG TAB PO PRN (22:30)
[2025-04-05 22:43] LABS: LDL Cholesterol 71 mg/dL (< 100); Triglycerides 96 mg/dL (< 150)
[2025-04-05 22:45] LABS: Cholesterol 122 mg/dL (< 200)
[2025-04-05 22:47] LABS: HDL Cholesterol 35 mg/dL (40-59)
[2025-04-05] MEDS: METOPROLOL TARTRATE 50 MG TAB PO SCH (23:00)
[2025-04-05] MEDS: PANTOPRAZOLE 40 MG TAB PO SCH (23:00)
[2025-04-05] MEDS: FUROSEMIDE 40 MG TAB PO SCH (23:01)
[2025-04-05] MEDS: TAMSULOSIN HYDROCHLORIDE 0.4 MG CAP PO ONE (23:01)
[2025-04-05 23:02] LABS: Amphetamine Screen, Urine Neg (NEGATIVE); Barbiturate Scree,Urine Neg (NEGATIVE); Benzodiazephine Screen, Urine Neg (NEGATIVE); Cannabinoid Screen, Urine Neg (NEGATIVE); Cocaine Screen, Urine Neg (NEGATIVE); Opiate Scree,Urine Neg (NEGATIVE); Phencyclidine Screen, Urine Neg (NEGATIVE)
[2025-04-05] MEDS ORDERED: cefTRIAXone 1GM/50ML D5W 50 ML IV SCH (23:15)
--- NOTE | 2025-04-05 23:16 | DVHHPRES ---
History of Present Illness Resident Creating Document: JIM ROTHMAN RESIDENT History of Present Illness This is a 74-year-old male with past medical history of CHF, hypertension, COPD, dyslipidemia, AFib, asthma, history of kidney stones, GERD who presented to the ED chief complaint of blood in his urine. The patient states symptoms started this morning before coming to the ED which started with right flank pain that progressively got worse associated with macroscopic hematuria. The patient states that he currently takes Xarelto for AFib. The patient denies fever/chi lls, chest pain, shortness of breath, dysuria or any other associated symptoms. Upon admission, CBC and BNP were grossly unremarkable troponins were negative. Urinalysis came back showing hematuria with UTI. CT scan of the abdomen and pelvis showed hepatic steatosis with a small right hydronephrosis secondary to an obstructing 2 mm right mid ureteral stone just anterior to the right psoas muscle. We will start the patient on IV fluids, tamsulosin 0.4 mg daily, ceftriaxone IV, and strain urine. We will admit the patient for further assessment and management. Past medical history: CHF, COPD, hypertension, dyslipidemia, AFib, asthma, kidney stones, GERD Home medications: Xarelto 20 mg daily, Entresto 24-26 mg two tablets daily, simvastatin 20 mg daily, digoxin 25 mcg daily, metoprolol tartrate 100 mg b.i.d., sotalol 80 mg b.i.d., Symbicort 80 mL inhaler, furosemide 40 mg daily, potassium chloride 20 mEq PRN, sucralfate 10 mg Surgical history: Appendectomy, colonoscopy, rhinoplasty, tonsillectomy, bone g raft transplant? Social history: Reports occasional alcohol intake, denies smoking or drug intake. Cardiovascular: AFIB, HTN, hyperipidemia Pulmonary: Asthma, COPD GI: GERD Renal/: Hematuria, Other (History of kidney stones) Past Surgical History: Appendectomy, Other (Bone graft transplant, rhinoplasty, colonoscopy), Tonsillectomy Family History: None Smoke: No ALCOHOL: none Drugs: None Lives: with Family Domestic Violence: Neg Review of Systems Constitutional: No: Fever, Chills, Sweats, Weakness, Malaise, Other Eyes: No: Pain, Vision change, Conjunctivae inflammation, Eyelid inflammation, Other, Redness ENT: No: Ear pain, Ear discharge, Nose pain, Nose discharge, Nose congestion, Mouth pain, Mouth swelling, Throat pain, Throat swelling, Other Respiratory: No: Cough, Dry, Shortness of breath, SOB with excertion, Wheezing, Hemoptysis, Pleuritic Pain, Sputum, Wheezing, Other Cardiovascular: No: Chest Pain, Palpitations, Orthopnea, Paroxysmal Noc. Dyspnea, Edema, Lt Headedness, Other Gastrointestinal: Abdominal Pain; No: Nausea, Vomiting, Diarrhea, Constipation, Melena, Hematochezia, Other Genitourinary: No Dysuria, No Frequency, No Incontinence; Hematuria; No Retention, No Other Musculoskeletal: No: other, neck pain, shoulder pain, arm pain, back pain, hand pain, leg pain, foot pain Skin: No: Rash, Lesions, Jaundice, Bruising, Other Neurological: No: Weakness, Numbness, Incoordination, Change in speech, Confusion, Seizures, Other Allergies: Coded Allergies: Penicillins (Verified Allergy, Severe, SWELLING, APNEA, 08/17/24) Ascorbate (Verified Allergy, Mild, SCRATCHY THROAT, 07/19/21) Aspirin (Verified Allergy, Unknown, Hives, 08/17/24) Uncoded Allergies: Okra (Allergy, Severe, ANAPHYLAXIS, 04/15/21) Medications Current Medications Medications Dose Ordered Sig/Sury Route Start Time Stop Time Status Last Admin Dose Admin Sodium Chloride 1,000 ml @ 60 mls/hr [id number] IV 04/05/25 22:30 Acetaminophen 650 mg Q6HP PRN PO 04/05/25 22:30 Acetaminophen/ Hydrocodone Bitart 1 tab Q4HP PRN PO 04/05/25 22:30 Enoxaparin Sodium 40 mg DAILY SC 04/06/25 10:00 Sacubitril/ Valsartan 1 tab BID PO 04/06/25 10:00 Atorvastatin Calcium 20 mg DAILY PO 04/06/25 10:00 Metoprolol Tartrate 100 mg BID PO 04/05/25 22:30 Furosemide 40 mg DAILY PO 04/05/25 22:30 Pantoprazole Sodium 40 mg DAILY PO 04/05/25 22:30 Exam Vital Signs Vital Signs Date Time Temp Pulse Resp B/P (MAP) Pulse Ox O2 Delivery O2 Flow Rate FiO2 04/05/25 21:57 98.0 84 117/78 (91) 96 98.0 04/05/25 19:53 18 04/05/25 10:33 Room Air* 0 21 General Appearance: Alert, Oriented X3, Cooperative, No acute distress HEENT: Atraumatic, PERRLA, EOMI, Mucous membr. moist/pink Respiratory: Clear to auscultation, Normal air movement (There is decreased breath sounds on bilateral lung buckner likely due to COPD) Cardiovascular: Regular rate, Normal S1, Normal S2, No murmurs Abdominal: Normal bowel sounds, Soft, No hepatospenomegaly, Other (There is right costovertebral angle tenderness) Extremities: No clubbing, No cyanosis, No edema, Normal pulses, No tenderness/swelling Skin: No rashes, No breakdown, No significant lesion Neuro: Normal gait, Normal speech, Strength at 5/5 X4 ext, Normal tone, Sensation intact, Cranial nerves 3-12 NL, Reflexes 2+ Psych/Mental Status: Mental status NL, Mood NL Labs/Xrays Labs Test 04/05/25 10:40 04/05/25 10:10 Range/Units White Blood Count 5.2 4.4-10.8 10^3/uL Red Blood Count 4.82 4.5-5.90 10^6/uL Hemoglobin 14.9 13.5-17.5 g/dL Hematocrit 44.4 41.0-53.0 % Mean Corpuscular Volume 92.0 80.0-100.0 fL Mean Corpuscular Hemoglobin 31.0 28.0-32.0 pg Mean Corpuscular Hemoglobin Concent 33.7 32.0-36.0 g/dL Red Cell Distribution Width 14.1 11.8-14.3 % Platelet Count 158 140-450 10^3/uL Mean Platelet Volume 8.3 6.9-10.8 fL Neutrophils (%) (Auto) 57.9 37.0-80.0 % Lymphocytes (%) (Auto) 24.1 10.0-50.0 % Monocytes (%) (Auto) 9.2 0.0-12.0 % Eosinophils (%) (Auto) 8.6 H 0.0-7.0 % Basophils (%) (Auto) 0.2 0.0-2.0 % Neutrophils # (Auto) 3.0 1.6-8.6 10 ^3/uL Lymphocytes # (Auto) 1.2 0.4-5.4 10 ^3/uL Monocytes # (Auto) 0.5 0-1.3 10 ^3/uL Eosinophils # (Auto) 0.4 0-0.8 10 ^3/uL Basophils # (Auto) 0 0-0.2 10 ^3/uL Nucleated Red Blood Cells 0.0 % Sodium Level 146 H 136-145 mmol/L Potassium Level 4.3 3.5-5.1 mmol/L Chloride Level 112 H 98-107 mmol/L Carbon Dioxide Level 26 20-31 mmol/L Anion Gap 8 5-15 Blood Urea Nitrogen 19 9-23 mg/dL Creatinine 1.09 0.700-1.30 mg/dL Glomerular Filtration Rate Calc 72 >90 mL/min BUN/Creatinine Ratio 17.4 10.0-20.0 Serum Glucose 82 74-106 mg/dL Hemoglobin A1c 5.5 <5.7 % A1C Calcium Level 9.4 8.7-10.4 mg/dL Troponin I High Sensitivity 7 </=54 ng/L Triglycerides Level 96 < 150 mg/dL Cholesterol Level 122 < 200 mg/dL LDL Cholesterol 71 < 100 mg/dL HDL Cholesterol 35 L 40-59 mg/dL Urine Color Dark-brown Yellow Urine Clarity Cloudy H Clear Urine pH 5.5 5.0-9.0 Urine Specific [place] 1.023 1.001-1.035 Urine Protein 1+ H Negative Urine Ketones Negative Negative Urine Blood 3+ H Negative /uL Urine Nitrite Negative Negative Urine Bilirubin Negative Negative Urine Urobilinogen Normal Negative mg/dL Urine Leukocyte Esterase 1+ Negative /uL Urine RBC 6434 0 - 3 /hpf Urine WBC Clumps Present None Seen /hpf Urine Microscopic WBC 21 H 0-3 /HPF Urine Squamous Epithelial Cells None seen <5 /hpf Urine Bacteria None seen None Seen /hpf Urine Mucus Few None Seen Urine Yeast (Budding) Moderate None Seen /hpf Urine Glucose Normal Normal mg/dL Assessment/Plan Assessment/Plan Assessment/plan Acute right flank pain with hematuria likely due to nephrolithiasis Acute nephrolithiasis with a obstructing 2 mm right mid ureteral stone Mild right hydronephrosis secondary to above UTI Acute on chronic systolic/diastolic heart failure COPD, stable Primary hypertension Paroxysmal atrial fibrillation Dyslipidemia GERD Plan -CT scan of the abdomen and pelvis showed small right hydronephrosis secondary due to an obstructing 2 mm right mid ureteral stone just anterior to the psoas muscle -start IV fluids at 60 cc/hour -start tamsulosin 0.4 mg daily -start pain medications -strain urine for stones -hold Xarelto at this time due to gross hematuria -cardiac diet -strict in's and out -start IV ceftriaxone -continue pantoprazole 40 mg daily, atorvastatin 20 mg daily, Entresto 24-26 mg b.i.d., furosemide 40 mg daily -monitor for stone passage Goals of care discussed with the patient at bedside for >35min, FULL CODE Plan discussed with Dr. Holguin Plan discussed with: Patient My Orders Orders - JIM ROTHMAN Procedure Category Date Status Time Admit ADMIT 04/05/25 Transmitted 22:19 Code Status CODE 04/05/25 Transmitted 22:19 Vital Signs MEHDI 04/05/25 In Process 22:19 Review Orders With MEHDI 04/05/25 In Process Adm. 22:19 Encourage Activity As MEHDI 04/05/25 In Process Tolerate 22:19 Sodium Chloride 0.9% PHA 04/05/25 In Process 22:30 Acetaminophen Tablet PHA 04/05/25 In Process (Tylenol Tablet) 22:30 Notify Of Changes MEHDI 04/05/25 In Process From Base 22:19 Advance Directive MEHDI 04/05/25 In Process 22:19 Complete Blood Count LAB 04/06/25 Verified 04:00 Patient Condition ORDERS 04/05/25 Transmitted 22:19 Allergies MEHDI 04/05/25 In Process 22:19 Hydrocodone-Acet PHA 04/05/25 In Process 5/325mg Tab ([place] 22:30 Drug Screen LAB 04/05/25 In Process 22:19 Enoxaparin Sodium PHA 04/06/25 In Process (Lovenox) 10:00 Comprehensive LAB 04/06/25 Verified Metabolic Panel 04:00 Cardiac DIET 04/06/25 Transmitted Diet-2gna,Lofat,Lochol Breakfast Strict I & O MEHDI 04/05/25 In Process 22:19 Tamsulosin PHA 04/06/25 In Process Hydrochloride (Flomax) 10:00 Sacubitril-Valsartan PHA 04/06/25 In Process (Entresto 24-26 Mg 10:00 Atorvastatin (Lipitor) PHA 04/06/25 In Process 10:00 Metoprolol Tartrate PHA 04/05/25 In Process Tablet (Lopressor Ta 22:30 Furosemide Tablet PHA 04/05/25 In Process (Lasix Tablet) 22:30 Pantoprazole Tablet PHA 04/05/25 In Process (Protonix Tablet) 22:30 Date of Service: Apr 05, 2025 Billing Provider: JIM ROTHMAN Common Visit Codes: [id number] INP/OBS CARE (HIGH) Secondary Visit Codes: [id number] CARE PLAN 30 MINUTES JIM ROTHMAN Apr 05, 2025 23:16
[2025-04-06] VITALS (9 sets, daily range): BP systolic 109–139; BP diastolic 68–94; PULSE 75–77; RESP 18–20; TEMP 96.9–98.3; O2SAT 93–98
[2025-04-06] MEDS: HYDROcodone-ACET 5/325MG TAB PO PRN (00:18)
[2025-04-06] MEDS: ONDANSETRON HCL 4 MG/2 ML VIAL IV PRN (01:06)
[2025-04-06] MEDS: KETOROLAC TROMETH 30 MG/ML 1ML VIAL IV ONE (01:07)
[2025-04-06] MEDS: ACETAMINOPHEN 325 MG TAB PO ONE (01:08)
--- NOTE | 2025-04-06 01:42 | DVH ---
BILATERAL RENAL ULTRASOUND CLINICAL HISTORY: R/O hydronephrosis COMPARISON: CT 04/05/2025 TECHNIQUE: High-resolution real-time grayscale and color flow imaging is performed. FINDINGS: Right kidney: 10.1 cm in length. Mild hydronephrosis. Normal cortical thickness and echogenicity. Left kidney: Measures 10 cm in length. Normal cortical thickness and echogenicity. No hydronephrosis. Bladder: Underdistended and therefore can not be adequately assessed. IMPRESSION: Mild right hydronephrosis
[2025-04-06 06:20] LABS: Basophils # (auto) 0 10 ^3/uL (0-0.2); Basophils % (auto) 0.1 % (0.0-2.0); Eosinophils # (auto) 0.2 10 ^3/uL (0-0.8); Eosinophils % (auto) 2.8 % (0.0-7.0); Hematocrit 44.1 % (41.0-53.0); Hemoglobin 15.2 g/dL (13.5-17.5); Lymphocytes # (auto) 1.1 10 ^3/uL (0.4-5.4); Mean Corpuscular Hemoglobin 31.8 pg (28.0-32.0); Mean Corpuscular Hgb Conc. 34.6 g/dL (32.0-36.0); Monocytes # (auto) 0.5 10 ^3/uL (0-1.3); Monocytes % (auto) 6.6 % (0.0-12.0); Neutrophils # (auto) 5.2 10 ^3/uL (1.6-8.6); Neutrophils % (auto) 74.5 % (37.0-80.0); Nucleated Red Blood Cells % 0.1 %; Platelet Count (auto) 145 10^3/uL (140-450); Red Blood Cells 4.79 10^6/uL (4.5-5.90); Red Cell Distribution Width 14.3 % (11.8-14.3)
[2025-04-06 06:35] LABS: Alanine Aminotransferase 27 U/L (7-40); Anion Gap 10 (5-15); Aspartate Aminotransferase 28 U/L (<34); BUN/Creatinine Ratio 15.4 (10.0-20.0); Blood Urea Nitrogen 21 mg/dL (9-23); Calcium 9.4 mg/dL (8.7-10.4); Carbon Dioxide 26 mmol/L (20-31); Glucose 92 mg/dL (74-106); Potassium 4.2 mmol/L (3.5-5.1); Total Protein 6.4 g/dL (5.7-8.2)
[2025-04-06 06:36] LABS: Alkaline Phosphatase 126 U/L (46-116); Bilirubin, Total 4.4 mg/dL (0.2-1.0); Chloride 110 mmol/L (98-107); Sodium 146 mmol/L (136-145)
[2025-04-06] MEDS: SACUBITRIL-VALSARTAN 24mg/26mg TAB PO SCH (09:40)
[2025-04-06] MEDS: ATORVASTATIN 20 MG TAB PO SCH (09:41)
[2025-04-06] MEDS: TAMSULOSIN HYDROCHLORIDE 0.4 MG CAP PO ONE (09:41)
[2025-04-06] MEDS ORDERED: ENOXAPARIN SOD 40 MG/0.4 ML SYRINGE SC SCH (10:00)
[2025-04-06] MEDS ORDERED: KETOROLAC TROMETH 30 MG/ML 1ML VIAL IV PRN (12:00)
--- NOTE | 2025-04-06 17:50 | DVHPN2 ---
Subjective Patient denies any pain at this time Reviewed: Care Plan, H&P, Labs, Medications Changes from previous H/P or p: No Changes General: Per HPI Eyes: No Pain, No Vision change, No Conjunctivae inflammation, No Eyelid inflammation, No Other, No Redness ENT: No Ear pain, No Ear discharge, No Nose pain, No Nose discharge, No Nose congestion, No Mouth pain, No Mouth swelling, No Throat pain, No Throat swelling, No Other Cardiovascular: No Chest Pain, No Palpitations, No Orthopnea, No Paroxysmal Noc. Dyspnea, No Edema, No Lt Headedness, No Other Respiratory: No Cough, No Dry, No Shortness of breath, No SOB with excertion, No Wheezing, No Hemoptysis, No Pleuritic Pain, No Sputum, No Other Gastrointestinal: No Nausea, No Vomiting; Abdominal Pain; No Diarrhea, No Constipation, No Melena, No Hematochezia, No Other Genitourinary: No Dysuria, No Frequency, No Incontinence; Hematuria; No Retention, No Other Musculoskeletal: No other, No neck pain, No shoulder pain, No arm pain, No back pain, No hand pain, No leg pain, No foot pain Skin: No Rash, No Lesions, No Jaundice, No Bruising, No Other Objective Vitals Vital Signs Date Time Temp Pulse Resp B/P (MAP) Pulse Ox O2 Delivery O2 Flow Rate FiO2 04/06/25 13:00 96.9 76 20 109/68 (82) 96 96.9 04/06/25 08:00 Room Air* 0 21 Intake/Output Intake and Output 04/06/25 07:00 Intake Total 1300 ml Output Total 300 ml Balance 1000 ml Intake Oral 300 ml IV Total 1000 ml Output Urine Total 300 ml General Appearance: Alert, Oriented X3, Cooperative, No acute distress HEENT: Atraumatic, PERRLA Lungs: Clear to auscultation, Normal air movement Cardiovascular: Normal S1, Normal S2 Abdomen: Normal bowel sounds, Soft Musculoskeletal: Normal sensory function, Normal motor function Psych/Mental Status: Mental status NL, Mood NL Medications Current Medications Medications Dose Ordered Sig/Sury Route Start Time Stop Time Status Last Admin Dose Admin Sodium Chloride 1,000 ml @ 60 mls/hr [id number] IV 04/05/25 22:30 04/06/25 00:18 60 MLS/HR Acetaminophen 650 mg Q6HP PRN PO 04/05/25 22:30 Acetaminophen/ Hydrocodone Bitart 1 tab Q4HP PRN PO 04/05/25 22:30 04/06/25 09:40 1 TAB Sacubitril/ Valsartan 1 tab BID PO 04/06/25 10:00 04/06/25 09:40 1 TAB Atorvastatin Calcium 20 mg DAILY PO 04/06/25 10:00 04/06/25 09:41 20 MG Metoprolol Tartrate 100 mg BID PO 04/05/25 22:30 04/06/25 09:42 100 MG Furosemide 40 mg DAILY PO 04/05/25 22:30 04/06/25 09:41 40 MG Pantoprazole Sodium 40 mg DAILY PO 04/05/25 22:30 04/06/25 09:41 40 MG Ketorolac Tromethamine 15 mg Q6HPRN PRN IV 04/06/25 12:00 04/11/25 11:59 Ondansetron HCl 4 mg Q6HPRN PRN IV 04/06/25 01:00 04/06/25 01:06 4 MG Laboratory Results Laboratory Tests 04/06/25 05:47 Chemistry Test 04/06/25 05:47 Albumin 4.0 g/dL (3.2-4.8) Calcium Level 9.4 mg/dL (8.7-10.4) Total Protein 6.4 g/dL (5.7-8.2) LFT Test 04/06/25 05:47 Alanine Aminotransferase (ALT) 27 U/L (7-40) Alkaline Phosphatase 126 U/L (46-116) H Aspartate Amino Transferase (AST) 28 U/L (<34) Total Bilirubin 4.4 mg/dL (0.2-1.0) H Urinalysis Test 04/05/25 10:10 Urine Color Dark-brown (Yellow) Urine Clarity Cloudy (Clear) H Urine pH 5.5 (5.0-9.0) Urine Specific [place] 1.023 (1.001-1.035) Urine Protein 1+ (Negative) H Urine Ketones Negative (Negative) Urine Blood 3+ /uL (Negative) H Urine Nitrite Negative (Negative) Urine Bilirubin Negative (Negative) Urine Urobilinogen Normal mg/dL (Negative) Urine Leukocyte Esterase 1+ /uL (Negative) Urine RBC 6434 /hpf (0 - 3) Urine WBC Clumps Present /hpf (None Seen) Urine Microscopic WBC 21 /HPF (0-3) H Urine Squamous Epithelial Cells None seen /hpf (<5) Urine Bacteria None seen /hpf (None Seen) Urine Mucus Few (None Seen) Urine Yeast (Budding) Moderate /hpf (None Seen) Urine Glucose Normal mg/dL (Normal) Labs and/or images reviewed: Labs reviewed by me, Image(s) reviewed by me Assessment/Plan Assessment/Plan Impression: -obstructive uropathy -renal calculi -elevated bilirubin -acute kidney injury -chronic systolic heart failure Plan: -gentle IV hydration -tamsulosin -antibiotic therapy -continue diuresis -liver ultrasound -reassess for discharge in a.m. Total time spent with patient discussing and formulating plan of care: 35 minutes. This medical document was created using an electronic medical record system with [employer] dictation system. Although this document has been carefully reviewed, there may still be some phonetic and typographical errors. These areas are purely typographical due to imperfections of the software programs, and do not reflect any compromise in the patient's medical care. Plan discussed with: Patient, Other (RN) Date of Service: Apr 06, 2025 Billing Provider: ANABEL MENJIVAR NP Common Visit Codes: [id number] INP/OBS CARE(HIGH) ANABEL MENJIVAR NP Apr 06, 2025 17:50
--- NOTE | 2025-04-06 20:49 | DVH ---
INDICATION: Elevated Bili TECHNIQUE: Ultrasound liver. Multiple real-time sonographic images of the abdomen were obtained. COMPARISON: ABDOMEN SINGLE ORGAN QUAD on DOS: 01/23/19 FINDINGS: Hepatic parenchyma consistent with steatosis. The liver measures 17.4 cm cm. No intrahepat ic biliary ductal dilatation is noted. The gallbladder wall measures 0.2 cm and is unremarkable. 2 cm gallstone in the gallbladder. It jesús ears mobile.. The common duct measures 0.73 cm and is dilated. No pericholecystic fluid is noted. N egative sonographic Reardon's sign The right kidney measures 10.6 cm. Mild hydronephrosis. The pancreas is not well visualized due to obscuration from bowel gas. The visualized portions of the IVC and aorta are grossly unremarkable. IMPRESSION: 1. Cholelithiasis. 2 cm gallstone. Mildly dilated common bile duct (7.3 mm) with a negative sonograph ic reardon's sign. No gallbladder wall thickening. 2. Mild hydronephrosis mid right kidney unchanged from 04/05/2025.
[2025-04-07 00:55] VITALS: BP 105/69; PULSE 76; RESP 17; TEMP 98.2; O2SAT 94
[2025-04-07 05:00] VITALS: BP 129/81; PULSE 76; RESP 18; TEMP 98.1; O2SAT 97
[2025-04-07 08:00] VITALS: PULSE 72; RESP 18; O2SAT 95
[2025-04-07 08:50] VITALS: BP 120/74; PULSE 72; RESP 18; TEMP 98.1; O2SAT 95
[2025-04-07] MEDS: TAMSULOSIN HYDROCHLORIDE 0.4 MG CAP PO ONE (09:28)
[2025-04-07] MEDS ORDERED: HYDR-4902 PO (10:27)
[2025-04-07] MEDS ORDERED: TAMS-35 PO (10:27)
[2025-04-07] MEDS: SODIUM CHLORIDE 0.9% 500 ML IV ONE (10:30)
--- NOTE | 2025-04-07 10:34 | DVHDS2 ---
Discharge Summary Date of Admission Apr 05, 2025 at 22:19 Date of Discharge: Apr 07, 2025 Admitting Diagnosis Obstructive uropathy secondary to renal calculi Labs/Diagnostic Data: Laboratory Results Test 04/06/25 05:47 04/05/25 10:40 04/05/25 10:10 White Blood Count 7.0 10^3/uL (4.4-10.8) Red Blood Count 4.79 10^6/uL (4.5-5.90) Hemoglobin 15.2 g/dL (13.5-17.5) Hematocrit 44.1 % (41.0-53.0) Mean Corpuscular Volume 92.0 fL (80.0-100.0) Mean Corpuscular Hemoglobin 31.8 pg (28.0-32.0) Mean Corpuscular Hemoglobin Concent 34.6 g/dL (32.0-36.0) Red Cell Distribution Width 14.3 % (11.8-14.3) Platelet Count 145 10^3/uL (140-450) Mean Platelet Volume 8.5 fL (6.9-10.8) Neutrophils (%) (Auto) 74.5 % (37.0-80.0) Lymphocytes (%) (Auto) 16.0 % (10.0-50.0) Monocytes (%) (Auto) 6.6 % (0.0-12.0) Eosinophils (%) (Auto) 2.8 % (0.0-7.0) Basophils (%) (Auto) 0.1 % (0.0-2.0) Neutrophils # (Auto) 5.2 10 ^3/uL (1.6-8.6) Lymphocytes # (Auto) 1.1 10 ^3/uL (0.4-5.4) Monocytes # (Auto) 0.5 10 ^3/uL (0-1.3) Eosinophils # (Auto) 0.2 10 ^3/uL (0-0.8) Basophils # (Auto) 0 10 ^3/uL (0-0.2) Nucleated Red Blood Cells 0.1 % Sodium Level 146 mmol/L (136-145) Potassium Level 4.2 mmol/L (3.5-5.1) Chloride Level 110 mmol/L (98-107) Carbon Dioxide Level 26 mmol/L (20-31) Anion Gap 10 (5-15) Blood Urea Nitrogen 21 mg/dL (9-23) Creatinine 1.36 mg/dL (0.700-1.30) Glomerular Filtration Rate Calc 55 mL/min (>90) BUN/Creatinine Ratio 15.4 (10.0-20.0) Serum Glucose 92 mg/dL (74-106) Calcium Level 9.4 mg/dL (8.7-10.4) Total Bilirubin 4.4 mg/dL (0.2-1.0) Aspartate Amino Transferase (AST) 28 U/L (<34) Alanine Aminotransferase (ALT) 27 U/L (7-40) Alkaline Phosphatase 126 U/L (46-116) Total Protein 6.4 g/dL (5.7-8.2) Albumin 4.0 g/dL (3.2-4.8) Hemoglobin A1c 5.5 % A1C (<5.7) Troponin I High Sensitivity 7 ng/L (</=54) Triglycerides Level 96 mg/dL (< 150) Cholesterol Level 122 mg/dL (< 200) LDL Cholesterol 71 mg/dL (< 100) HDL Cholesterol 35 mg/dL (40-59) Urine Color Dark-brown (Yellow) Urine Clarity Cloudy (Clear) Urine pH 5.5 (5.0-9.0) Urine Specific [place] 1.023 (1.001-1.035) Urine Protein 1+ (Negative) Urine Ketones Negative (Negative) Urine Blood 3+ /uL (Negative) Urine Nitrite Negative (Negative) Urine Bilirubin Negative (Negative) Urine Urobilinogen Normal mg/dL (Negative) Urine Leukocyte Esterase 1+ /uL (Negative) Urine RBC 6434 /hpf (0 - 3) Urine WBC Clumps Present /hpf (None Seen) Urine Microscopic WBC 21 /HPF (0-3) Urine Squamous Epithelial Cells None seen /hpf (<5) Urine Bacteria None seen /hpf (None Seen) Urine Mucus Few (None Seen) Urine Yeast (Budding) Moderate /hpf (None Seen) Urine Glucose Normal mg/dL (Normal) Urine Opiates Screen Neg (NEGATIVE) Urine Fentanyl Screen Neg (NEGATIVE) Urine Barbiturates Screen Neg (NEGATIVE) Urine Phencyclidine Screen Neg (NEGATIVE) Urine Amphetamines Screen Neg (NEGATIVE) Urine Benzodiazepines Screen Neg (NEGATIVE) Urine Cocaine Screen Neg (NEGATIVE) Urine Cannabinoids Screen Neg (NEGATIVE) Other Laboratory Tests 04/06/25 05:47 Brief Hx & Hospital Course: History of Present Illness This is a 74-year-old male with past medical history of CHF, hypertension, COPD, dyslipidemia, AFib, asthma, history of kidney stones, GERD who presented to the ED chief complaint of blood in his urine. The patient states symptoms started this morning before coming to the ED which started with right flank pain that progressively got worse associated with macroscopic hematuria. The patient states that he currently takes Xarelto for AFib. The patient denies fever/chills, chest pain, shortness of breath, dysuria or any other associated symptoms. Upon admission, CBC and BNP were grossly unremarkable troponins were negative. Urinalysis came back showing hematuria with UTI. CT scan of the abdomen and pelvis showed hepatic steatosis with a small right hydronephrosis secondary to an obstructing 2 mm right mid ureteral stone just anterior to the right psoas muscle. We will start the patient on IV fluids, tamsulosin 0.4 mg daily, ceftriaxone IV, and strain urine. We will admit the patient for further assessment and management. Course of hospitalization: Patient was given gentle IV hydration. Patient was noted to have some pain this a.m. requiring Lowman. At the time of the time of assessment this a.m., patient denies any pain. Patient is agreeable to be discharged home given pain management with oral medications. Patient will be continued on IV hydration for the next several hours, be provided Lasix, to be discharged home with Flomax 0.4 mg p.o. daily x7 days. Patient will also be provided Lowman for pain management. He will follow up with his PCP, Nena Diallo NP within seven days. He is instructed to continue all previous home medications. All questions answered. Physical examination General: Alert and Oriented x3. No acute distress. Well-nourished. Eyes: EOMI. Anicteric. HENT: Moist mucous membranes. Lungs: Clear to auscultation bilaterally. No accessory muscle use. Cardiovascular: Regular rate and rhythm. No murmur. No JVD. Abdomen: Soft, non-tender and non-distended. No palpable masses. Extremities: No edema. Non-tender. Skin: No rashes or lesions. Warm. Neurologic: No focal neurological deficits. CN II-XII grossly intact, but not individually tested. Psychiatric: Cooperative. Appropriate mood and affect. Total time spent with patient discussing and formulating plan of care: 35 minutes. This medical document was created using an electronic medical record system with [employer] dictation system. Although this document has been carefully reviewed, there may still be some phonetic and typographical errors. These areas are purely typographical due to imperfections of the software programs, and do not reflect any compromise in the patient's medical care. Condition at Discharge: Fair Final Diagnosis/Problems List Obstructive uropathy due to 2mm stone Secondary diagnosis: -obstructive uropathy -renal calculi -elevated bilirubin -acute kidney injury -chronic systolic heart failure Discharge Disposition: Home Discharge Instruct/Medications Diet: Cardiac 2g Na,low cholest Activity: No Restrictions, As Tolerated Follow Up/Referral: PCP Marita Diallo NP, in 1 week Medications: Flomax 0.4mg po daily x 7 days Lowman 5/325 mg po q8hrs as needed for mod to severe pain 36 Discharge Statement: "Patient was advised to return to the ER or call 911 if any headaches, dizziness, shortness of breath, chest pain, abdominal pain, bleeding, fevers, or worsening of medical condition. Patient was counseled about treatment plan, medications, possible side effects, patientverbalized understanding. All questions were answered to the best of my ability. This discharge took greater then 30 minutes in planning, reviewing documentation, counseling the patient, and discussing with other team members." ASSESSMENT ASSESSMENT Assessment Obstructive uropathy due to 2mm stone Date of Service: Apr 07, 2025 Billing Provider: ANABEL MENJIVAR NP Common Visit Codes: [id number] INP/OBS CARE(HIGH) ANABEL MENJIVAR NP Apr 07, 2025 10:34
[2025-04-07 13:00] VITALS: BP 135/85; PULSE 75; RESP 18; TEMP 98.4; O2SAT 96
[2025-04-07 15:21] VITALS: BP 135/85; PULSE 75; RESP 18; TEMP 98.4; O2SAT 96
== END 2025-04-07 19:05 | disposition home or self-care (01) | DRG 690 ==
LOC: ER 09:56 → OVERFLOW 22:19 → EAST 23:58
PROVIDERS: ADMIT Student in an Organized Health Care Education/Training Program; ATTEND Emergency Medicine
DX: N13.6 Pyonephrosis (principal); I50.22 Chronic systolic (congestive) heart failure; N17.9 Acute kidney failure, unspecified; I48.0 Paroxysmal atrial fibrillation; E11.9 Type 2 diabetes mellitus without complications; I11.0 Hypertensive heart disease with heart failure; E78.5 Hyperlipidemia, unspecified; K21.9 Gastro-esophageal reflux disease without esophagitis; J44.9 Chronic obstructive pulmonary disease, unspecified; R31.0 Gross hematuria; K76.0 Fatty (change of) liver, not elsewhere classified; Z88.6 Allergy status to analgesic agent; Z88.0 Allergy status to penicillin; Z88.8 Allergy status to other drugs, medicaments and biological substances; Z79.1 Long term (current) use of non-steroidal anti-inflammatories (NSAID); Z79.899 Other long term (current) drug therapy; Z87.442 Personal history of urinary calculi; Z90.49 Acquired absence of other specified parts of digestive tract; Z95.0 Presence of cardiac pacemaker; Z79.01 Long term (current) use of anticoagulants
CPT/HCPCS: 36415; 74176; 76705; 76775; 80048; 80053; 80061; 80307; 81001; 83036; 84484; 85025; 96361; 96374; 99291; G0378; J1885; J2405

== ENCOUNTER → 2025-05-22 | Outpatient (CLI) | payer OTHER ==
[~2025-05-22] MED LIST changes: -ACE3T PO; +CHOL100079 OR; +FURO1TAB31 PO; +HYDR-4902 PO; -MAGN400T40 PO; +PANT40T PO; +POTA-220 PO; +SUCR1TAB PO; +TAMS-35 PO
[2025-05-22 11:30] VITALS: BP 100/62; PULSE 66; RESP 16; O2SAT 97
[2025-05-22 12:03] VITALS: BP 115/66; PULSE 65; RESP 16; O2SAT 97
--- NOTE | 2025-05-22 13:36 | DVH ---
XY CHEST TWO VIEWS ROUTINE CLINICAL HISTORY: PRE OP CARDIAC CLEARANCE COMPARISON: XY CHEST TWO VIEWS ROUTINE on DOS: 10/09/24, CXRP on DOS: 05/20/22, CHEST PORTABLE on DOS: 04/24/22, CHEST PORTABLE on DOS: 04/23/22, CXRP on DOS: 04/23/22 TECHNIQUE: Frontal and lateral view of the chest was obtained FINDINGS: Lines and Tubes: Left pacemaker/AICD Lungs: No focal consolidation. Pleura: No effusion. No pneumothorax. Cardiomediastinal contours: Unremarkable Bones: No acute osseous abnormality. IMPRESSION: No acute cardiopulmonary disease.
--- NOTE | 2025-05-23 14:22 | DVHOP ---
DATE OF SURGERY: 05/22/2025 PROCEDURES PERFORMED: * Explantation of BiV AICD. * Implantation of new BiV AICD. * Conscious sedation as well. Risks and benefits were explained to the patient prior to the patient undergoing the above-mentioned procedures. The patient's AICD end-of-life. DESCRIPTION OF PROCEDURE: The patient was prepped and draped under sterile condition. Xylocaine 1% used to anesthetize the left supraclavicular region. Using a 10 blade, linear incision was made. Using blunt dissection and electrocautery, pocket was then dissected out. The old generator was explanted. The new generator Biotronik BiV AICD generator was implanted. It is a DF-1. It is not an MRI compatible system. The leads are not MRI compatible even though the generator is. Following the exchange of the generator, generator was implanted. Pocket was irrigated using vancomycin and saline solution. Pocket was closed using 3-0 Monoderm subcutaneous sutures followed by 3-0 Monoderm subcuticular sutures. There were no complications. The patient tolerated the procedure well. RESULTS: The patient had BiV AICD generator was explanted. New BiV AICD generator was implanted. Biotronik BiV DF-1 device. Explanted device Intica 7 HF-T QP, serial number [id number]. New device implanted is Intica Surya 7 HF-T QP, serial number [id number]. Leads: Atrial lead is Tilda Fernando R45, serial number [id number]. RV lead is Plexa SD 65-18, serial number [id number]. LV lead is Sentus 85 QP, serial number [id number]. Threshold parameters: Atrium: If the patient is in AFib, P wave amplitude of 3.9 millivolts, impedance of 735 ohms. Right ventricular lead R-wave amplitude to 7.7 millivolts, threshold 0.5 volts at 0.4 milliseconds pulse duration, pacing impedance of 460 ohms. Right ventricular lead R-wave amplitude of 6.3 millivolts, threshold 2.0 volts at 0.4 milliseconds pulse duration. CONCLUSION: The patient has successful explantation of BiV AICD, implantation new BiV AICD. It is a non-MRI compatible system. Kenan Aguilar MD SA/CONRADO/ARAMIS TID: [id number] RECEIPT: [id number]
--- NOTE | 2025-05-24 07:36 | DVHHP ---
ADMIT DATE: 05/22/2025 HISTORY OF PRESENT ILLNESS: The patient is 74 years old with history of dilated cardiomyopathy, ischemic component, now BiV AICD end of life. Ejection fraction was around 30% in the past by echocardiography and the patient has remained in relatively euvolemic state since the implantation of AICD. He recently had chest pain. He actually underwent coronary angiography. It showed the patient to have patent coronary anatomy. At this time, small vessel disease. Now, he is to undergo BiV AICD generator change. Risks and benefits were explained to the patient. REVIEW OF SYSTEMS: The patient denies any history of fever, chills, melena, hematochezia, hematemesis, hemoptysis, or hematuria. Denies any history of recent trauma. No travel outside the country. Denies any history of inflammatory bowel disease, ischemic cardiomyopathy, or any history of irritable bowel syndrome. No history of colitis as well. Denies any history of COPD. Denies any history of tobacco or alcohol use. No history of seizure disorder, no history of movement disorder. No history of CVA. PHYSICAL EXAMINATION: VITAL SIGNS: Blood pressure is 122/84, pulse 70, O2 saturation 96% on room air. HEENT: Pupils are reactive. Funduscopic exam shows no AV nicking, no exudates, no papilledema. Extraocular muscles are intact. Sclerae anicteric. Tympanic membranes are negative. Oral mucosa moist. Posterior pharynx without any exudate. NECK: JVD about 2 cm above the angle of Zenon. Carotid pulses are 2+ and symmetrical. Normal upstroke and contour. PULMONARY: Clear to auscultation. Tympanic to percussion. No rhonchi. No wheezes. CARDIOVASCULAR: Regular rate. PMI is diffuse, laterally displaced. ABDOMEN: Soft, nontender. Normal bowel sounds. No epigastric tenderness. No suprapubic tenderness. Stool guaiac is negative. NEUROLOGIC: The patient is intact. ASSESSMENT AND PLAN: Thus, the patient with dilated cardiomyopathy, now to undergo BiV AICD generator change. Kenan Aguilar MD SA/DUTCH TID: [id number] RECEIPT: [id number]
== END | disposition home or self-care (01) ==
LOC: Rad HDHVI 11:38
PROVIDERS: ATTEND Internal Medicine Cardiovascular Disease
DX: Z01.818 Encounter for other preprocedural examination (principal); Z45.02 Encounter for adjustment and management of automatic implantable cardiac defibrillator; Z95.810 Presence of automatic (implantable) cardiac defibrillator
CPT/HCPCS: 71046; 93005; G0463

== ENCOUNTER 2025-05-23 07:33 | Day surgery (SDC) | payer OTHER ==
[2025-05-22 13:29] LABS: Hematocrit 43.9 % (41.0-53.0); Hemoglobin 14.8 g/dL (13.5-17.5); Mean Corpuscular Hemoglobin 31.0 pg (28.0-32.0); Mean Corpuscular Volume 91.9 fL (80.0-100.0); Nucleated Red Blood Cells % 0.1 %
[2025-05-22 13:33] LABS: INR 1.05 (0.9-1.15); Partial Thromboplastin Time 26.2 SEC (24.5-34.5); Prothrombin Time 11.1 sec (9.3-11.8)
[2025-05-22 13:53] LABS: Chloride 106 mmol/L (98-107); Potassium 4.5 mmol/L (3.5-5.1); Sodium 141 mmol/L (136-145)
[2025-05-22 13:54] LABS: Anion Gap 7 (5-15); Calcium 9.1 mg/dL (8.7-10.4); Carbon Dioxide 28 mmol/L (20-31)
[2025-05-22 13:59] LABS: BUN/Creatinine Ratio 16.8 (10.0-20.0); Blood Urea Nitrogen 20 mg/dL (9-23); Glucose 105 mg/dL (74-106)
[2025-05-23] VITALS (7 sets, daily range): BP systolic 108–133; BP diastolic 68–88; PULSE 68–74; RESP 14–16; TEMP 97.3; O2SAT 93–96
[~2025-05-23] VITALS: Ht 177.8 cm; Wt 81.6 kg
[~2025-05-23 07:33] MED LIST changes: -BUDE80AE3 INH; -HYDR-4902 PO
[2025-05-23] MEDS: fentaNYL CITRATE 100 MCG/2 ML VL ONE (12:19)
[2025-05-23] MEDS: VANCOMYCIN HCL 1000 MG VL ONE (12:19)
[2025-05-23] MEDS: VANCOMYCIN 1GM/200ML PM 200 ML IV ONE (12:20)
[2025-05-23] MEDS: LIDOCAINE 2%HCL (LOCAL ANESTH.) INJ 20ML MDV ONE (12:20)
[2025-05-23] MEDS: MIDAZOLAM HCL 2MG/2ML 2ml VIAL (1mg/ml) ONE (12:20)
--- NOTE | 2025-05-23 13:36 | DVHDS ---
DATE OF DISCHARGE: 05/23/2025 DISCHARGE DIAGNOSES: The patient with cardiomyopathy, ejection fraction less than 30%, status post biventricular automatic implantable cardioverter-defibrillator generator change. HOSPITAL COURSE: Clinically, the patient is stable. We discharged home. He will be discharged on antibiotics, Keflex 500 mg p.o. daily. He will return to the clinic in about a week for a wound check. He is stable at the time of the discharge. DISPOSITION: Home. ACTIVITY: As instructed. DIET: 2 g sodium diet. Kenan Aguilar MD SA/RICKIE TID: [id number] RECEIPT: [id number]
--- NOTE | 2025-05-27 09:57 | DVHHP ---
ADMIT DATE: 05/23/2025 HISTORY OF PRESENT ILLNESS: The patient is 74 years old with history of dilated cardiomyopathy, ischemic component, now BiV AICD end of life. Ejection fraction was around 30% in the past by echocardiography and the patient has remained in relatively euvolemic state since the implantation of AICD. He recently had chest pain. He actually underwent coronary angiography. It showed the patient to have patent coronary anatomy. At this time, small vessel disease. Now, he is to undergo BiV AICD generator change. Risks and benefits were explained to the patient. REVIEW OF SYSTEMS: The patient denies any history of fever, chills, melena, hematochezia, hematemesis, hemoptysis, or hematuria. Denies any history of recent trauma. No travel outside the country. Denies any history of inflammatory bowel disease, ischemic cardiomyopathy, or any history of irritable bowel syndrome. No history of colitis as well. Denies any history of COPD. Denies any history of tobacco or alcohol use. No history of seizure disorder, no history of movement disorder. No history of CVA. PHYSICAL EXAMINATION: VITAL SIGNS: Blood pressure is 122/84, pulse 70, O2 saturation 96% on room air. HEENT: Pupils are reactive. Funduscopic exam shows no AV nicking, no exudates, no papilledema. Extraocular muscles are intact. Sclerae anicteric. Tympanic membranes are negative. Oral mucosa moist. Posterior pharynx without any exudate. NECK: JVD about 2 cm above the angle of Zenon. Carotid pulses are 2+ and symmetrical. Normal upstroke and contour. PULMONARY: Clear to auscultation. Tympanic to percussion. No rhonchi. No wheezes. CARDIOVASCULAR: Regular rate. PMI is diffuse, laterally displaced. ABDOMEN: Soft, nontender. Normal bowel sounds. No epigastric tenderness. No suprapubic tenderness. Stool guaiac is negative. NEUROLOGIC: The patient is intact. ASSESSMENT AND PLAN: Thus, the patient with dilated cardiomyopathy, now to undergo BiV AICD generator change. Kenan Aguilar MD SA/DUTCH TID: [id number] RECEIPT: [id number]
--- NOTE | 2025-05-29 06:44 | DVHOP ---
DATE OF SURGERY: 05/23/2025 PROCEDURES PERFORMED: * Explantation of BiV AICD. * Implantation of new BiV AICD. * Conscious sedation as well. Risks and benefits were explained to the patient prior to the patient undergoing the above-mentioned procedures. The patient's AICD end-of-life. DESCRIPTION OF PROCEDURE: The patient was prepped and draped under sterile condition. Xylocaine 1% used to anesthetize the left supraclavicular region. Using a 10 blade, linear incision was made. Using blunt dissection and electrocautery, pocket was then dissected out. The old generator was explanted. The new generator Biotronik BiV AICD generator was implanted. It is a DF-1. It is not an MRI compatible system. The leads are not MRI compatible even though the generator is. Following the exchange of the generator, generator was implanted. Pocket was irrigated using vancomycin and saline solution. Pocket was closed using 3-0 Monoderm subcutaneous sutures followed by 3-0 Monoderm subcuticular sutures. There were no complications. The patient tolerated the procedure well. RESULTS: The patient had BiV AICD generator was explanted. New BiV AICD generator was implanted. Biotronik BiV DF-1 device. Explanted device Intica 7 HF-T QP, serial number [id number]. New device implanted is In[place] Surya 7 HF-T QP, serial number [id number]. Leads: Atrial lead is Tilda Fernando R45, serial number [id number]. RV lead is Plexa SD 65-18, serial number [id number]. LV lead is Sentus 85 QP, serial number [id number]. Threshold parameters: Atrium: If the patient is in AFib, P wave amplitude of 3.9 millivolts, impedance of 735 ohms. Right ventricular lead R-wave amplitude to 7.7 millivolts, threshold 0.5 volts at 0.4 milliseconds pulse duration, pacing impedance of 460 ohms. Right ventricular lead R-wave amplitude of 6.3 millivolts, threshold 2.0 volts at 0.4 milliseconds pulse duration. CONCLUSION: The patient has successful explantation of BiV AICD, implantation new BiV AICD. It is a non-MRI compatible system. Kenan Aguilar MD SA/CONRADO/ARAMIS TID: [id number] RECEIPT: [id number]
== END 2025-05-23 15:25 | disposition home or self-care (01) ==
LOC: CATH 07:33
PROVIDERS: ATTEND Internal Medicine Cardiovascular Disease
DX: T82.111A Breakdown (mechanical) of cardiac pulse generator (battery), initial encounter (principal); I25.2 Old myocardial infarction; I20.9 Angina pectoris, unspecified; I50.9 Heart failure, unspecified; J44.9 Chronic obstructive pulmonary disease, unspecified; G47.30 Sleep apnea, unspecified; Z87.01 Personal history of pneumonia (recurrent); Z87.891 Personal history of nicotine dependence; Z88.0 Allergy status to penicillin; Z88.6 Allergy status to analgesic agent; Z88.8 Allergy status to other drugs, medicaments and biological substances; Z91.018 Allergy to other foods; Z83.3 Family history of diabetes mellitus; Z82.3 Family history of stroke; Z82.49 Family history of ischemic heart disease and other diseases of the circulatory system; Z80.8 Family history of malignant neoplasm of other organs or systems; Y71.8 Miscellaneous cardiovascular devices associated with adverse incidents, not elsewhere classified
CPT/HCPCS: 33264; 36415; 80048; 85025; 85610; 85730; C1882; J2250; J3010; J3373; J7030; 99152; 99153

== ENCOUNTER 2025-07-08 10:01 | Outpatient (CLI) | payer OTHER | END 2025-07-08 17:00 | disposition home or self-care (01) | LOC: Rad HDHVI 10:01 | PROVIDERS: ATTEND Internal Medicine Cardiovascular Disease | DX: I34.0 Nonrheumatic mitral (valve) insufficiency (principal); I11.9 Hypertensive heart disease without heart failure; Z95.0 Presence of cardiac pacemaker | CPT/HCPCS: 93306 ==

== ENCOUNTER 2025-07-10 09:47 | Outpatient (CLI) | payer OTHER ==
[~2025-07-10] VITALS: Ht 176.5 cm; Wt 82.6 kg
[2025-07-10] MEDS ORDERED: ADENOSINE 90 MG/30 ML INJ IV ONE (10:15)
[2025-07-10] MEDS ORDERED: ADENOSINE 69 MG in GIVE UN-DILUTED 0 ML IV ONE (10:45)
== END 2025-07-10 17:00 | disposition home or self-care (01) ==
LOC: Rad HDHVI 09:47
PROVIDERS: ATTEND Internal Medicine Cardiovascular Disease
DX: I49.3 Ventricular premature depolarization (principal); I13.0 Hypertensive heart and chronic kidney disease with heart failure and stage 1 through stage 4 chronic kidney disease, or unspecified chronic kidney disease; E11.22 Type 2 diabetes mellitus with diabetic chronic kidney disease; N18.9 Chronic kidney disease, unspecified; I50.42 Chronic combined systolic (congestive) and diastolic (congestive) heart failure; I48.91 Unspecified atrial fibrillation; I42.0 Dilated cardiomyopathy; I25.10 Atherosclerotic heart disease of native coronary artery without angina pectoris; I49.5 Sick sinus syndrome; E78.00 Pure hypercholesterolemia, unspecified; J43.9 Emphysema, unspecified; Z82.49 Family history of ischemic heart disease and other diseases of the circulatory system; Z95.810 Presence of automatic (implantable) cardiac defibrillator
CPT/HCPCS: 78452; 93017; A9500; J0153

== ENCOUNTER 2025-08-14 09:27 | Outpatient (CLI) | payer OTHER ==
[2025-08-14 09:35] VITALS: BP 128/73; PULSE 70; RESP 16; O2SAT 97
[2025-08-14 10:00] VITALS: BP 107/68; PULSE 70; RESP 16; O2SAT 97
[2025-08-14] MEDS ORDERED: BUDE1AER6 IN (11:29)
[2025-08-14] MEDS ORDERED: POM IN (11:29)
== END 2025-08-14 17:00 | disposition home or self-care (01) ==
LOC: CHF HDHVI 09:27
PROVIDERS: ATTEND Internal Medicine Cardiovascular Disease
DX: Z01.810 Encounter for preprocedural cardiovascular examination (principal); R07.9 Chest pain, unspecified
CPT/HCPCS: 93005; G0463

== ENCOUNTER 2025-08-15 07:36 | Day surgery (SDC) | payer OTHER ==
[2025-08-14 11:42] LABS: Hematocrit 45.0 % (41.0-53.0); Hemoglobin 15.2 g/dL (13.5-17.5); Mean Corpuscular Hemoglobin 31.9 pg (28.0-32.0); Mean Corpuscular Volume 94.2 fL (80.0-100.0); Nucleated Red Blood Cells % 0.1 %
[2025-08-14 11:51] LABS: INR 1.18 (0.9-1.15); Partial Thromboplastin Time 32.2 SEC (24.5-34.5); Prothrombin Time 12.3 sec (9.3-11.8)
[2025-08-14 12:22] LABS: Anion Gap 8 (5-15); Carbon Dioxide 27 mmol/L (20-31); Chloride 105 mmol/L (98-107); Potassium 4.6 mmol/L (3.5-5.1); Sodium 140 mmol/L (136-145)
[2025-08-14 12:24] LABS: Calcium 8.9 mg/dL (8.7-10.4)
[2025-08-14 12:29] LABS: BUN/Creatinine Ratio 17.2 (10.0-20.0); Blood Urea Nitrogen 21 mg/dL (9-23)
[2025-08-14 12:49] LABS: Glucose 73 mg/dL (74-106)
[~2025-08-15] VITALS: Ht 177.8 cm; Wt 84.8 kg
[2025-08-15] VITALS (7 sets, daily range): BP systolic 99–122; BP diastolic 68–82; PULSE 70–75; RESP 11–15; O2SAT 94–98
[~2025-08-15 07:36] MED LIST changes: +POM IN
[2025-08-15] MEDS ORDERED: IOHEXOL 350 MG/ML 100ML IJ ONE (09:25)
[2025-08-15] MEDS ORDERED: SODIUM CHL 0.9% 0 ML ONE (09:33)
[2025-08-15] MEDS ORDERED: MIDAZOLAM HCL 2MG/2ML 2ml VIAL (1mg/ml) ONE (09:33)
[2025-08-15] MEDS ORDERED: fentaNYL CITRATE 100 MCG/2 ML VL ONE (09:33)
[2025-08-15] MEDS ORDERED: ANGIOMAX 250 MG VIAL IV ONE (09:33)
[2025-08-15] MEDS ORDERED: LIDOCAINE 2%HCL (LOCAL ANESTH.) INJ 20ML MDV ONE (09:34)
--- NOTE | 2025-08-15 10:14 | DVHOP ---
DATE OF SURGERY: 08/15/2025 PROCEDURES PERFORMED: * Selective left and right coronary angiography. * Ventriculogram. * Right iliac angiography. * FFR of the left anterior descending artery which is 0.94. DESCRIPTION OF PROCEDURE: The patient was prepped and draped under sterile conditions. Xylocaine 1% used to anesthetize the right groin. Using Cook needle, right femoral artery was engaged. Using Seldinger technique, a 6-Martiniquais sheath in the right femoral artery. Using a 6-Martiniquais JL4 catheter and a 6-Martiniquais JL4 catheter, selective left and right coronary angiographies were performed. Using 6-Martiniquais pigtail catheter, ventriculogram was done. FFR of the LAD was performed at this time because of slight narrowing. It was only 0.94. Therefore, no intervention is required. Left ventricular function shows global hypokinesis with an estimated EF of less than 30% with an LVEDP of 20 mmHg with no gradient across the aortic valve. CONCLUSION: The patient with dilated cardiomyopathy. No significant coronary artery disease. At this time, conservative medical management, aggressive risk modification. We will continue to follow the patient. Kenan Aguilar MD SA/CONRADO TID: [id number] RECEIPT: [id number]
--- NOTE | 2025-08-15 10:20 | DVHDS ---
DATE OF DISCHARGE: 08/15/2025 DISCHARGE DIAGNOSES: The patient with dilated cardiomyopathy and heart failure with reduced ejection fraction, chronic. The patient is clinically stable, now being discharged home. Coronary angiography failed to demonstrate any significant epicardial vascular disease. This was confirmed by FFR as well. Follow up with me in 1 week. Stable at the time of discharge. DISPOSITION: Home. ACTIVITY: As instructed. DIET: 2 g sodium diet. Kenan Aguilar MD SA/[place] TID: [id number] RECEIPT: [id number]
--- NOTE | 2025-08-15 10:58 | DVHHP ---
ADMIT DATE: 08/15/2025 HISTORY OF PRESENT ILLNESS: The patient is a 75-year-old who is well known to me with a history of dilated cardiomyopathy, heart failure with reduced ejection fraction status post Bi-V AICD implantation. Previously, had a permanent pacemaker as well. That has been explained and Bi-V AICD has been implanted. Now, the patient is having increasing symptoms of chest pain, pressure-like sensation, and stress test shows inferior wall reversibility, which did not happen in previous stress test. Because of the above presentation with chest pain and inferior wall reversibility, it is felt that the patient should undergo coronary angiography. Risks and benefits were explained to the patient. The patient with ejection fraction of less than 30%. FAMILY HISTORY: Negative. SOCIAL HISTORY: Negative. No history of tobacco or alcohol use. REVIEW OF SYSTEMS: He denies any fever or chills. No melena or hematochezia. No hematemesis or hemoptysis. No history of seizure disorder. No movement disorder. No history of CVA. No history of inflammatory bowel disease or irritable bowel syndrome. No history of mixed connective tissue disease. No history of any tumor or mass. PHYSICAL EXAMINATION: VITAL SIGNS: On physical examination, blood pressure is 122/84, pulse 76, O2 saturation 96% on room air. HEENT: Pupils are reactive. Funduscopic exam shows no AV nicking. No exudates. No papilledema. Sclerae anicteric. Extraocular muscles are intact. NECK: JVD about 2 cm above the angle of Zenon. No cervical adenopathy. No supraclavicular adenopathy. Carotid pulses are 2+ and symmetrical. Normal obstruction contour. PULMONARY: Clear to auscultation in all lung buckner. Tympanic to percussion. CARDIOVASCULAR: Regular rate without S3, without S4. PMI is diffuse, however, laterally and inferiorly displaced. ABDOMEN: Soft and nontender. Normal bowel sounds. No epigastric tenderness. No suprapubic tenderness. No CVA tenderness. Liver approximately 5 cm with percussion. Stool guaiac is negative. NEUROLOGIC: The patient is intact. EXTREMITIES: 1+ pulses, 1+ edema. RECOMMENDATIONS: Thus, the patient has abnormal stress test with ongoing chest pain. The patient is now to undergo coronary angiography to define coronary anatomy. Further recommendations after the angiogram. Kenan Aguilar MD SA/RACHAEL TID: [id number] RECEIPT: [id number]
== END 2025-08-15 12:30 | disposition home or self-care (01) ==
LOC: CATH 07:36
PROVIDERS: ATTEND Internal Medicine Cardiovascular Disease
DX: R07.9 Chest pain, unspecified (principal); I42.0 Dilated cardiomyopathy; R94.39 Abnormal result of other cardiovascular function study; I50.22 Chronic systolic (congestive) heart failure; J44.9 Chronic obstructive pulmonary disease, unspecified; G47.30 Sleep apnea, unspecified; F17.210 Nicotine dependence, cigarettes, uncomplicated; Z79.899 Other long term (current) drug therapy; Z95.810 Presence of automatic (implantable) cardiac defibrillator; Z87.01 Personal history of pneumonia (recurrent); Z88.6 Allergy status to analgesic agent; Z88.8 Allergy status to other drugs, medicaments and biological substances; Z91.018 Allergy to other foods; Z83.3 Family history of diabetes mellitus; Z82.3 Family history of stroke; Z82.49 Family history of ischemic heart disease and other diseases of the circulatory system; Z80.9 Family history of malignant neoplasm, unspecified
CPT/HCPCS: 0523T; 36415; 80048; 85025; 85610; 85730; 93458; C1760; C1894; J1644; J2250; J3010; J7030; Q9967; 99152

== ENCOUNTER → 2025-08-23 | Outpatient (CLI) | payer OTHER | END | disposition home or self-care (01) | LOC: LAB 13:12 | PROVIDERS: ATTEND Internal Medicine Cardiovascular Disease | DX: I48.91 Unspecified atrial fibrillation (principal); Z79.899 Other long term (current) drug therapy | CPT/HCPCS: 36415; 80162 ==

== ENCOUNTER 2025-10-07 15:58 | Outpatient (CLI) | payer OTHER | END 2025-10-07 17:00 | disposition home or self-care (01) | LOC: LAB 15:58 | PROVIDERS: ATTEND Nurse Practitioner Family | DX: E29.1 Testicular hypofunction (principal); Z79.899 Other long term (current) drug therapy | CPT/HCPCS: 36415; 84153; 84403 ==